=== PATIENT | male | born 1950 | race Caucasian/White ===

== ENCOUNTER 2017-12-26 14:07 | Inpatient (IN) | payer MEDICARE, OTHER ==
--- NOTE | 2017-12-26 16:52 | CT ---
NONCONTRAST CT HEAD 12/26/17 HISTORY: Altered mental status and slurred speech. COMPARISON: 03/23/17. FINDINGS: There are areas of decreased attenuation seen in the periventricular white matter which are nonspecif ic but likely reflective of mild chronic small vessel ischemic changes. There is no evidence of an ac curyung cortical infarction, hemorrhage, mass effect or midline shift. Diffuse cerebral volume loss is ag ain present. The ventricular system is normal in size, shape and position. There is opacification of a portion of the right maxillary antrum which may be related to combination of mucous retention cyst and mucosal thickening. Mastoid air cells are clear. No other interval roy ge. IMPRESSION: 1. No acute intracranial abnormalities demonstrated. 2. Mild chronic small vessel ischemic changes and cerebral volume loss. POS: OFF
--- NOTE | 2017-12-26 17:26 | HP ---
DATE OF ADMISSION: 12/26/2017 CHIEF COMPLAINT: Altered mental status. HISTORY OF PRESENT ILLNESS: This is a 67-year-old morbidly obese white male with a known history of congestive heart failure, history of atrial fibrillation and chronic alcoholic use. The patient was in his usual state of health until few days ago he started seeing people and having visual hallucinat ions. He reported this to his and the patient happened to see one of the bi specialist, who re ferred the patient to Neurology, Dr. Abreu, but the patient could not make it to the appointment an d last night he was having worsening mental status changes, so the patient was sent to [facility] and from there the patient is transferred here as the patient was having elevated troponins and an elevated BNP. The patient was seen along with his . He was alert and oriented x2. Denied havin g any chest pain, no nausea, no vomiting, no diarrhea, no constipation. Denies having any dizziness. Denies having any headache. The patient does reports to seeing many people in the room, but actual ly there were no people according to the . The patient has been drinking alcohol. He drinks vod ka pretty frequently 2 to 3 times a week and the last drink was last night. He had vodka when some o f his families were in the house. The patient has evidence of possible alcohol withdrawals as he is trying to cut down on alcohol for the past few days. Yesterday, after the hallucinations, he had anx iety attack and following which he had palpitations and noted that he had his heart rate was racing u p. PAST MEDICAL HISTORY: 1. Hypertension. 2. Obesity. 3. Dyslipidemia. 4. GERD. 5. Asthma. 6. Hypothyroidism. 7. Paroxysmal atrial fibrillation, chronic systolic heart failure, moderate coronary artery disease. 8. History of peptic ulcer bleed. PAST SURGICAL HISTORY: 1. Laparoscopic gastric banding. 2. Cholecystectomy. 3. Left knee replacement. 4. Right ankle surgery. 5. Tonsillectomy. 6. Adenoidectomy. 7. Umbilical hernia repair. PAST PSYCHIATRIC HISTORY: History of anxiety and depression. SOCIAL HISTORY: The patient has a history of alcoholism. As stated above, he does drink vodka 2 to 3 times a week. He denies smoking. No history of illicit drug use. FAMILY HISTORY: No family history of coronary artery disease or premature deaths in the family. ALLERGIES: No known drug allergies. HOME MEDICATIONS: 1. Tylenol. 2. Digoxin 0.125 mg daily. 3. Celexa 10 mg daily. 4. Folic acid 1 mg daily. 5. Lasix 40 mg daily. 6. Lisinopril 2.5 mg daily. 7. Metoprolol 25 mg tablet, takes 12.5 mg p.o. b.i.d. 8. Pantoprazole 40 mg p.o. b.i.d. 9. Simvastatin 40 mg p.o. daily. 10. Aspirin 81 mg daily. 11. Bupropion 100 mg p.o. b.i.d. 12. Fluticasone inhaler. 13. Levothyroxine 75 mcg daily. 14. Potassium chloride 20 mg daily. 15. Thiamine 100 mg p.o. daily. REVIEW OF SYSTEMS: All 12 systems are reviewed with the patient thoroughly and found to be negative at this time except the ones described in the HPI. The following complete review of systems was negative, unless otherwise mentioned in the HPI or below : Constitutional: Weight loss or gain, sense of well-being, ability to conduct usual activities, exerc ise tolerance. Skin/Breast: Rash, itching, changes in hair growth or loss, nail changes, breast lumps, tenderness, swelling, nipple discharge. Eyes: Vision, double vision, tearing, blind spots, pain. ENT/Mouth: Headaches (location, time of onset, duration, precipitating factors), vertigo, lightheade dness, injury. Vision, double vision, tearing, blind spots, pain, nose bleeding, colds, obstruction, discharge, dental difficulties, gingival bleeding, dentures, neck stiffness, pain, tenderness, masses in thyroid or other areas. Cardiovascular: Precordial pain, substernal distress, palpitations, syncope, dyspnea on exertion, or thopnea, nocturnal paroxysmal dyspnea, edema, cyanosis, hypertension, heart murmurs, varicosities, ph lebitis, claudication. Respiratory: Pain, shortness of breath, wheezing, stridor, cough, hemoptysis, fever or night sweats. Gastrointestinal: Poor appetite, dysphagia, indigestion, abdominal pain, heartburn, eructation, naus ea, vomiting, hematemesis, jaundice, constipation, or diarrhea, abnormal stools (sammy-colored, tarry, bloody, greasy, foul smelling), flatulence, hemorrhoids, recent changes in bowel habits. Genitourinary: Urgency, frequency, dysuria, nocturia, hematuria, polyuria, oliguria, unusual (or david nge in) color of urine, stones, hesitancy, change in size of stream, dribbling, acute retention or in continence, libido, potency. Musculoskeletal: Pain, swelling, redness or heat of muscles or joints, limitation, of motion, muscul ar weakness, atrophy, cramps. Neurologic/Psychiatric: Convulsions, paralyses, tremor, incoordination, paresthesias, difficulties w ith memory of speech, sensory or motor disturbances, or muscular coordination (ataxia, tremor), emoti onal problems, anxiety, depression, previous psychiatric care, unusual perceptions, hallucinations. Allergy/Immunologic: Skin rash, anemia, bleeding tendency, polydipsia, polyuria, intolerance to heat or cold. PHYSICAL EXAMINATION: VITAL SIGNS: Blood pressure is 130/88, respiratory rate is 19, and saturation is 98%. GENERAL: The patient is moderately built and moderately nourished, does not appear to be in acute di stress at this time, alert and oriented x3. HEENT: Atraumatic, normocephalic, PERRLA. Extraocular muscles are intact. Oral mucosa is pink and moist. CARDIOVASCULAR: S1, S2 normal. No murmurs, rubs or gallops. LUNGS: Bilateral air entry was equal. No wheezing, no crackles. ABDOMEN: Soft and nontender. No guarding or rebound tenderness. Bowel sounds normal. MUSCULOSKELETAL: No calf tenderness. No pedal edema. No joint tenderness, no joint swelling. SKIN: No cyanosis, no erythema, no rash, no pallor. NEUROLOGIC: Cranial nerve examination II-XII intact. No focal deficits were noted. LABORATORY DATA: Sodium is 123, potassium is 3.4, chloride is 79, bicarbonate is 26, BUN is 11, and creatinine is 0.79. WBC is 7.7, hemoglobin is 14.4, hematocrit is 43.0, and platelets 153. CK is 219, CK-MB 11.4, troponin 0.04. BNP is 1451. Urine toxicology was negative. ASSESSMENT: 1. Acute atrial fibrillation with rapid ventricular rate. 2. Non-ST elevation myocardial infarction. 3. Acute congestive heart failure with diastolic dysfunction. 4. Acute hyponatremia. 5. Acute metabolic encephalopathy. 6. Chronic alcoholism. PLAN: 1. The patient had a Cardizem bolus in the ER and his heart rate is back to normal now to 90 and the patient does not have any palpitations at this time. The patient mentions that his sales support associate, Dr Maria Luisa Gonzalez, has taken him off of all the antiarrhythmic medications, which is still showing in his MR a s the patient is on amiodarone. At this time, we will continue the patient on beta edie and will get a 2D echo in the morning. We will consult Cardiology, Dr. Gonzalez, as he is his own sales support associate. 2. The patient's initial troponin was elevated mildly to 0.04. We will closely monitor and most lik yuriy this could be a demand ischemia from the rapid ventricular rate. We will continue the patient on aspirin, beta edie and statin. 3. The patient has evidence of congestive heart failure as the has clearly noted that the patie nt has gained weight significantly and has a severe pedal edema and also third-spacing in the abdomen was noted. We will start the patient on Lasix 40 mg IV b.i.d. and also continue on lisinopril and s tart him on spironolactone 25 mg p.o. daily. 4. The patient has evidence of severe hyponatremia. This could be related to his alcohol consumptio n. At this time, we will continue with the Lasix as the patient has clear evidence of free fluid ove rload. We will continue to monitor the sodium levels. We would not give him any IV fluids at this t hao because of the volume overload state. 5. The patient has evidence of acute alcoholism. We will start the patient on thiamine and folic ac id and insurance counsel the patient to quit alcohol and explained the relation between alcohol and atrial fibr illation. 6. The patient is on digoxin, which could also have similar side effects of hallucinations, nausea a nd vomiting. At this time, we will check the digoxin levels. 7. The patient is morbidly obese. We will insurance counsel the patient to lose weight for better health. 8. The patient complains of severe hallucinations, most likely this could be related to the alcohol, but he also has some slurred speech, so we will get a CT of the head if it was not done in the [facility] and we will also consult Dr. Abreu as the patient was supposed to be seeing Dr. Abreu as an outpatient. 9. Deep venous thrombosis prophylaxis, Lovenox 40 mg subcutaneously daily. I spent 70 minutes with this patient. Of this, one hour is critical care time.
[2017-12-26 18:05] VITALS: BMI 44.4
[2017-12-26] MEDS ORDERED: Ondansetron PF 4 MG/2 ML Vial IVP PRN (18:09)
[2017-12-26] MEDS ORDERED: Bisacodyl 5 MG TAB PO PRN (18:09)
[2017-12-26] MEDS ORDERED: Acetaminophen 325 MG TAB PO PRN (18:09)
[2017-12-26] MEDS ORDERED: FLU VACC TS2017-18 (>65YR) 0.5 ML SYRINGE IM ONE (18:45)
[2017-12-26 18:49] LABS: Digoxin Less than 0.15 ng/mL (0.8-2.0)
[2017-12-26 18:55] LABS: Troponin I 0.042 ng/mL (< 0.028)
[2017-12-26] MEDS ORDERED: Diltiazem HCl 125 MG, Admixture Fee 1 EACH in Sodium Chloride 0.9% 100 ML IVPB SCH (19:00)
[2017-12-26] MEDS ORDERED: Sodium Chloride 0.9% 10 ML ONE ×3 (19:22→23:55)
[2017-12-26] MEDS: Bupropion 100 MG SR TAB PO SCH (19:49)
[2017-12-26] MEDS: Atorvastatin Calcium 20 MG TAB PO SCH (19:49)
[2017-12-26] MEDS ORDERED: buPROPion HCl 100 MG TAB PO SCH (21:00)
[2017-12-26] MEDS: Famotidine/PF 20 mg/2ml Vial SLOW IVP SCH (21:33)
[2017-12-26] MEDS: Metoprolol Tartrate 25 MG TAB PO SCH (21:43)
[2017-12-26] MEDS: Lorazepam 2 MG/ML VIAL SLOW IVP PRN (23:57)
[2017-12-27] MEDS: Fluticasone Propionate Nasal Spray 16 gm Bottle NASAL SCH ×3 (00:05→22:00)
[2017-12-27 05:23] LABS: #Basophils 0.1 thou/uL (0.0-0.2); #Lymphocytes 0.7 thou/uL (1.20-3.40); #Neutrophils 5.3 thou/uL (1.40-6.50); %Basophils 1.1 % (0.0-1.0); %Eosinophils 0.5 % (0.0-10.0); %Lymphocytes 9.3 % (21.0-51.0); %Neutrophils 75.1 % (42.0-75.0); Hemoglobin 13.8 g/dL (14.0-18.0); Mean Corpuscular HGB CONC 34.2 g/dL (32.0-36.0); Mean Corpuscular Hemoglobin 34.7 pg (27.0-31.0); Mean Platelet Volume 8.1 fL (7.4-10.4); Platelet Count 139 thou/uL (130-400); RBC Distribution Width 14.2 % (11.5-14.5); Red Blood Cell (RBC) Count 3.98 mill/uL (4.70-6.10)
[2017-12-27 05:34] LABS: Anion Gap 17 mmol/L (10-20); BUN (Urea Nitrogen) 12 mg/dL (8.4-25.7); Calc. Creatinine Clearance 168 mL/min (70-130); Calcium 9.2 mg/dL (7.8-10.44); Carbon Dioxide 27 mmol/L (23-31); Chloride 82 mmol/L (98-107); Estimated GFR-MDRD Greater than 90; Glucose 113 mg/dL (80-115); Potassium 3.4 mmol/L (3.5-5.1); Sodium 123 mmol/L (136-145)
[2017-12-27] MEDS ORDERED: Sodium Chloride 0.9% 10 ML ONE ×2 (07:58→21:56)
[2017-12-27] MEDS: Levothyroxine Sodium 100 MCG TAB PO SCH (08:02)
[2017-12-27] MEDS: Furosemide 40 MG/4 ML VIAL SLOW IVP SCH ×2 (08:02→14:11)
[2017-12-27] MEDS ORDERED: Amiodarone 200 MG TAB PO SCH (09:00)
[2017-12-27] MEDS: Famotidine/PF 20 mg/2ml Vial SLOW IVP SCH ×2 (10:04→22:32)
[2017-12-27] MEDS: Enoxaparin Sodium 40 MG/0.4 ML SYRINGE SC SCH (10:05)
[2017-12-27] MEDS: Metoprolol Tartrate 25 MG TAB PO SCH ×6 (10:05→22:00)
[2017-12-27] MEDS: Docusate 100 MG CAP PO SCH (10:06)
[2017-12-27] MEDS: Escitalopram Oxalate 20 mg Tablet PO SCH (10:06)
[2017-12-27] MEDS: Fish Oil 1,000 MG CAP PO SCH (10:06)
[2017-12-27] MEDS: Lisinopril 2.5 MG TAB PO SCH (10:06)
[2017-12-27] MEDS: Spironolactone 25 MG TAB PO SCH ×2 (10:07→10:31)
[2017-12-27] MEDS: Folic Acid 1 MG TAB PO SCH (10:07)
[2017-12-27] MEDS: Bupropion 100 MG SR TAB PO SCH ×2 (10:07→21:58)
[2017-12-27] MEDS: Potassium Chloride 20 MEQ TAB PO SCH (10:08)
--- NOTE | 2017-12-27 10:55 | CON ---
DATE OF CONSULTATION: 12/27/2017 CONSULTING PHYSICIAN: Hospitalist Service IMPRESSION: 1. Hallucinations. 2. Congestive heart failure. 3. Atrial fibrillation. PLAN: 1. Seroquel 50 mg at bedtime. 2. Office followup. Mr. Franks is a 67-year-old man who came in with complaints of a 2 week history of hallucinations. He has been relatively short of breath and has been placed on oxygen and was found to be in atrial fibr illation. His blood pressure has been under good control. He has been afebrile since admission. Pr s CT scan of the brain showed some minimal small vessel ischemic changes. He had nothing remarkable on his lab work. He reports that he was seeing people around the house that were not there. He was told by his that these were not real and he had some difficulty accepting it. He is otherwise w ithout any particular complaints such as headache, nausea, dizziness, lateralized weakness or numbnes s. PAST MEDICAL HISTORY: As listed above. ALLERGIES: CODEINE. SOCIAL HISTORY: No alcohol use. FAMILY HISTORY: Noncontributory. REVIEW OF SYSTEMS: Otherwise, negative. PHYSICAL EXAMINATION: GENERAL: He is an overweight, middle age man sitting at the bedside, appearing be somewhat short of breath. VITAL SIGNS: Pulse 80, respirations 20. HEENT: Pupils equal and reactive. Conjunctivae clear. Oropharynx clear. NECK: No lymphadenopathy. EXTREMITIES: Showed a moderate amount of edema in both lower extremities. NEUROLOGIC: He is alert and cooperative. He was oriented to person and time. He still was not sure exactly which hospital he was in. His speech is fluent and clear. His exam was otherwise nonfocal. SUMMARY: A 67-year-old man with some degree of memory difficulty who has been having some visual ana lucinations. Will go ahead and start him on an anti-psychotic and follow up with him to [facility] [employer] workup for dementia as an outpatient.
[2017-12-27] MEDS ORDERED: Metoprolol Tartrate 25 MG TAB PO SCH (12:00)
--- NOTE | 2017-12-27 12:23 | CON ---
DATE OF CONSULTATION: 12/27/2017 REASON FOR CONSULTATION: Atrial fibrillation with rapid ventricular response and heart failure. PRIMARY STRUCTURED CABLING TECHNICIAN: Lew Gonzalez M.D. HISTORY OF PRESENT ILLNESS: Mr. Franks is a very pleasant 67-year-old white gentleman who comes to the hospital for hallucinations. He had been noticing increase in his hallucinations at home, so he had an appointment scheduled with Dr. Abreu, his neurologist. He could not make the appointment and does the hallucinations got worse, he started getting short of breath, so his brought him to the ER. Here, he was found to have an elevated BNP and had been in atrial fibrillation with RVR, so he was admitted for further evaluation and care. He has a history of paroxysmal atrial fibrillation; however, when last time he was seen, he was here for a GI bleed, we stopped all his anticoagulation. He also had this atrial fibrillation that would not be controlled. He would not convert and he was basically sent home on rate control. We were unable to do a cardioversion as we would not be able to anticoagulate him afterwards. He also had echocardiogram that showed his EF initially was about 20%-25%. This was during rapid atrial fibrillation. Once we managed just slowing down some more, he was back up to about 40%, which he had been in the past. He has nonischemic cardiomyopathy, which is moderate disease in his coronary anatomy from a heart catheterization in 2014. On my evaluation, Mr. Franks is doing a little bit better. He is well aware of his hallucinations, but other than that, his breathing is just a little bit labored , but not currently, he states it is better than yesterday. He drinks alcohol. He used to drink much heavier, but he only dose about 2-3 times a week. He drinks vodka and he had a couple beers on [employer] weekend. Mr. Franks admits to having some very dark looking stool. He is not sure if he had melena or not , but he thinks he may have. PAST MEDICAL HISTORY: 1. Hypertension. 2. Obesity. 3. Hyperlipidemia. 4. Gastroesophageal reflux disease. 5. Asthma. 6. Hypothyroidism. 7. Paroxysmal atrial fibrillation. 8. Chronic systolic dysfunction. 9. Mild to moderate coronary artery disease. 10. Peptic ulcer disease, status post bleeding. PAST SURGICAL HISTORY: 1. Laparoscopic gastric banding. 2. Cholecystectomy. 3. Left knee replacement. 4. Right ankle surgery. 5. Tonsillectomy. 6. Heart catheterization. 7. Adenoidectomy. 8. Umbilical hernia repair. SOCIAL HISTORY: No tobacco or drugs. He is a former heavy alcohol user, most recently he is only drinking about 2-3 vodka shots a week according to his report. FAMILY HISTORY: Noncontributory. OUTPATIENT MEDICATIONS: Should include, 1. Tylenol. 2. Digoxin 0.125 mg daily. 3. Celexa. 4. Folic acid. 5. Lasix 40 mg daily. 6. Lisinopril 2.5 mg daily. 7. Metoprolol 12.5 mg b.i.d. 8. Pantoprazole 40 mg b.i.d. 9. Simvastatin 40 mg daily. 10. Aspirin 81 daily. 11. Bupropion 100 mg b.i.d. 12. Fluticasone. 13. Levothyroxine 75 mcg daily. 14. Potassium chloride 20 mg daily. 15. Thiamine. REVIEW OF SYSTEMS: Twelve point review of systems was done and is all negative unless stated in the history of present illness. PHYSICAL EXAMINATION: VITAL SIGNS: Temperature 97.5, pulse 101-78, respiratory rate 18, satting 96% on 2 liters, blood pressure 110/67. GENERAL: Awake, alert, oriented to person and place, little bit of difficulty with time, but answers, in no distress. HEENT: Normocephalic. NECK: Supple. LUNGS: Have mild crackles at the bases. CARDIOVASCULAR: S1, S2 irregularly irregular. Heart rate in the 90s. There is a grade 2/6 systolic murmur in the right upper sternal border. ABDOMEN: Soft. EXTREMITIES: 2+ edema. SKIN: Warm and dry. LABORATORY WORK: Reviewed. Digoxin level was undetectable. Hematology with a normal white count, hemoglobin 13, hematocrit 40, platelet count 139. Chemistries: Sodium 123, potassium is 3.4, chloride of 82, carbon dioxide 27, anion gap of 17, BUN of 12, creatinine 0.84, GFR of greater than 90, calcium is normal. Troponin I was 0.04 and 0.04. BNP was 985. IMAGING: CT of the brain was reviewed. EKG was reviewed. ASSESSMENT: 1. Acute on chronic systolic heart failure. 2. Atrial fibrillation, paroxysmal now in rapid ventricular response. Currently, better rate controlled. 3. History of alcohol use. 4. Possible cirrhosis. 5. History of upper gastrointestinal bleed. 6. Medication noncompliance. 7. Hallucinations followed by Neurology. PLAN: 1. We will stop diltiazem drip and we will start him on his home medications, most likely his rapid ventricular response was related to just being volume up and the stress of the hallucinations. He is much more calm now and his heart rate is in the 90s, off the drip for the last half hour. 2. Not a good candidate for any anticoagulation given his noncompliance and his history of GI bleed while on blood thinners as well as possibly having cirrhosis. 3. For his hallucinations, I am going to check ammonia level. 4. Continue to trend hemoglobin and make sure he is not having any bleeding from his report of having very dark looking stool. 5. Echocardiogram pending. As if his EF is less than 35%, he may be a candidate for an AICD now. Thank you for letting us participate in the care of the patient. We will follow. [facility]
--- NOTE | 2017-12-27 13:44 | PDOC.PN ---
- Subjective Encounter Start Date: 12/27/17 Encounter Start Time: 11:00 -: old records requested/rev Pt seen and examined, chart reviewed in its entirety, this is my first visit with this patient. Pt sleeping, but arousable, no tremulous. Denies f/C, no N/V/d/C. Sees somnolent, oriented to person only, denies hallucinations 10 point ROS performed and neg for all systems except as above, again, unsure of reliability BP dropped some this morning on cardizem, drip, stopped by dr elder, thinks pt is in chronic afib and look s to rate control only - Objective Resuscitation Status: Resuscitation Status FULL:Full Resuscitation MAR Reviewed: Yes Vital Signs & Weight: Vital Signs (12 hours) Temp Pulse Pulse Pulse Resp BP BP 12/27/17 11:17 97.5 F L 78 16 12/27/17 10:06 101 H 12/27/17 09:02 97.5 F L 78 16 12/27/17 08:50 112 H 115 H 166/82 H 129/76 12/27/17 08:10 89 12/27/17 04:00 96.5 F L 98 20 BP Pulse Ox 12/27/17 11:17 110/67 96 12/27/17 10:06 12/27/17 09:02 105/73 96 12/27/17 08:50 12/27/17 08:10 136/86 12/27/17 04:00 138/57 L 95 Weight Weight 305 lb 1 oz I&O: 12/26/17 12/27/17 12/28/17 06:59 06:59 06:59 Intake Total 120 186 Output Total 525 Balance 120 -339 Result Diagrams: 12/27/17 04:38 12/27/17 04:38 Radiology Reviewed by me: Yes EKG Reviewed by me: Yes Phys Exam - Physical Examination Constitutional: NAD HEENT: PERRLA, moist MMs, sclera anicteric, oral pharynx no lesions Neck: no nodes, no JVD, supple, full ROM Respiratory: no wheezing, no rhonchi bibasilar crackles Cardiovascular: no significant murmur, irregular tachycardic Gastrointestinal: soft, non-tender, no distention, positive bowel sounds Musculoskeletal: pulses present, edema present Neurological: non-focal, normal sensation, moves all 4 limbs Lymphatic: no nodes Skin: no rash, normal turgor, cap refill <2 seconds Dx/Plan (1) Chronic a-fib Code(s): I48.2 - CHRONIC ATRIAL FIBRILLATION Status: Acute Comment: rate control. BBlocker, cardiology following (2) Acute on chronic systolic heart failure Code(s): I50.23 - ACUTE ON CHRONIC SYSTOLIC (CONGESTIVE) HEART FAILURE Status : Acute (3) Encephalopathy acute Code(s): G93.40 - ENCEPHALOPATHY, UNSPECIFIED Status: Acute Comment: history previously. ? metabolic or DTs. watch, ASE, ativan PRN (4) Physical deconditioning Code(s): R53.81 - OTHER MALAISE Status: Acute (5) Cardiomyopathy Code(s): I42.9 - CARDIOMYOPATHY, UNSPECIFIED Status: Chronic Qualifiers: Cardiomyopathy type: alcoholic Qualified Code(s): I42.6 - Alcoholic cardiomyopathy Comment: ef of around 25%, clinical decompensation, resume chronic meds (6) ETOH abuse Code(s): F10.10 - ALCOHOL ABUSE, UNCOMPLICATED Status: Chronic Comment: will contact family to discuss current usage (7) HLD (hyperlipidemia) Code(s): E78.5 - HYPERLIPIDEMIA, UNSPECIFIED Status: Chronic Qualifiers: Hyperlipidemia type: unspecified Qualified Code(s): E78.5 - Hyperlipidemia , unspecified (8) HTN (hypertension) Code(s): I10 - ESSENTIAL (PRIMARY) HYPERTENSION Status: Chronic Qualifiers: Hypertension type: essential hypertension Qualified Code(s): I10 - Essential (primary) hypertension Comment: Stable, continue home BP regimen (9) Hypothyroid Code(s): E03.9 - HYPOTHYROIDISM, UNSPECIFIED Status: Chronic Qualifiers: Hypothyroidism type: unspecified Qualified Code(s): E03.9 - Hypothyroidism , unspecified Comment: Continue Levothyroxine 100mcg daily - Plan * .
[2017-12-27] MEDS: Lorazepam 2 MG/ML VIAL SLOW IVP PRN (14:10)
[2017-12-27] MEDS: Atorvastatin Calcium 20 MG TAB PO SCH (22:00)
[2017-12-28] MEDS ORDERED: Sodium Chloride 0.9% 10 ML ONE (06:14)
[2017-12-28] MEDS: Furosemide 40 MG/4 ML VIAL SLOW IVP SCH ×2 (06:25→14:55)
[2017-12-28] MEDS: Levothyroxine Sodium 100 MCG TAB PO SCH (06:26)
[2017-12-28] MEDS: Potassium Chloride 20 MEQ TAB PO SCH ×4 (06:32→18:36)
[2017-12-28 07:24] LABS: #Lymphocytes 0.7 thou/uL (1.20-3.40); #Monocytes 0.8 thou/uL (0.11-0.59); #Neutrophils 3.9 thou/uL (1.40-6.50); %Basophils 0.3 % (0.0-1.0); %Eosinophils 0.6 % (0.0-10.0); %Lymphocytes 13.3 % (21.0-51.0); %Monocytes 14.1 % (0.0-10.0); %Neutrophils 71.7 % (42.0-75.0); Mean Corpuscular HGB CONC 33.8 g/dL (32.0-36.0); Mean Corpuscular Hemoglobin 34.3 pg (27.0-31.0); Mean Platelet Volume 7.7 fL (7.4-10.4); Platelet Count 125 thou/uL (130-400); White Blood Cell (WBC) Count 5.4 thou/uL (4.8-10.8)
[2017-12-28 07:45] LABS: Anion Gap 12 mmol/L (10-20); BUN (Urea Nitrogen) 16 mg/dL (8.4-25.7); Calc. Creatinine Clearance 140 mL/min (70-130); Calcium 9.2 mg/dL (7.8-10.44); Carbon Dioxide 34 mmol/L (23-31); Chloride 81 mmol/L (98-107); Estimated GFR-MDRD 75; Glucose 114 mg/dL (80-115); Magnesium 1.6 mg/dL (1.6-2.6); Sodium 124 mmol/L (136-145)
[2017-12-28] MEDS: Bupropion 100 MG SR TAB PO SCH ×2 (10:03→20:11)
[2017-12-28] MEDS: Fish Oil 1,000 MG CAP PO SCH (10:03)
[2017-12-28] MEDS: Famotidine/PF 20 mg/2ml Vial SLOW IVP SCH (10:03)
[2017-12-28] MEDS: Escitalopram Oxalate 20 mg Tablet PO SCH (10:03)
[2017-12-28] MEDS: Folic Acid 1 MG TAB PO SCH (10:04)
[2017-12-28] MEDS: Spironolactone 25 MG TAB PO SCH (10:04)
[2017-12-28] MEDS: Fluticasone Propionate Nasal Spray 16 gm Bottle NASAL SCH ×2 (10:04→20:11)
[2017-12-28] MEDS: Docusate 100 MG CAP PO SCH (10:04)
[2017-12-28] MEDS: Lisinopril 2.5 MG TAB PO SCH (10:05)
[2017-12-28] MEDS: Metoprolol Tartrate 25 MG TAB PO SCH ×2 (10:07→20:10)
[2017-12-28] MEDS: Enoxaparin Sodium 40 MG/0.4 ML SYRINGE SC SCH (10:08)
[2017-12-28] MEDS ORDERED: Diazepam 5 MG TAB PO PRN (10:46)
[2017-12-28] MEDS ORDERED: Diazepam 5 MG TAB PO SCH (11:00)
[2017-12-28] MEDS ORDERED: Thiamine HCl 200 MG/2 ML VIAL IM SCH (11:00)
--- NOTE | 2017-12-28 14:01 | PDOC.PN ---
- Subjective Encounter Start Date: 12/28/17 Encounter Start Time: 10:30 Pt much more awake and alert today Ox3. no F/C, no n/V/D/c, no CP or sOB. BP okay, HR 90s to 110s. no acute events overnight 10 point ROS performed and neg for all systems except as per HPI - Objective Resuscitation Status: Resuscitation Status FULL:Full Resuscitation MAR Reviewed: Yes Vital Signs & Weight: Vital Signs (12 hours) Temp Pulse Resp BP BP BP Pulse Ox 12/28/17 11:50 97.5 F L 116 H 18 108/77 95 12/28/17 08:00 97.9 F 99 20 95 12/28/17 07:35 97.9 F 90 20 108/74 98 12/28/17 06:34 101 H 18 107/70 12/28/17 03:59 97.4 F L 89 16 98/67 93 L Weight Weight 301 lb I&O: 12/27/17 12/28/17 12/29/17 06:59 06:59 06:59 Intake Total 120 186 80 Output Total 525 160 Balance 120 -339 -80 Result Diagrams: 12/28/17 06:54 12/28/17 06:54 Radiology Reviewed by me: Yes EKG Reviewed by me: Yes Phys Exam - Physical Examination Constitutional: NAD HEENT: PERRLA, moist MMs, sclera anicteric, oral pharynx no lesions Neck: no nodes, no JVD, supple, full ROM bibasilar rales. no rhonci, no wheezes Cardiovascular: RRR, no significant murmur, irregular Gastrointestinal: soft, non-tender, no distention, positive bowel sounds Musculoskeletal: pulses present, edema present Neurological: non-focal, normal sensation, moves all 4 limbs Lymphatic: no nodes Psychiatric: normal affect, A&O x 3 Skin: no rash, normal turgor, cap refill <2 seconds Dx/Plan (1) Chronic a-fib Code(s): I48.2 - CHRONIC ATRIAL FIBRILLATION Status: Acute Comment: rate control. BBlocker, cardiology following (2) Acute on chronic systolic heart failure Code(s): I50.23 - ACUTE ON CHRONIC SYSTOLIC (CONGESTIVE) HEART FAILURE Status : Acute (3) Encephalopathy acute Code(s): G93.40 - ENCEPHALOPATHY, UNSPECIFIED Status: Acute Comment: history previously. ? metabolic or DTs. watch, ASE, ativan PRN. much more alert and oriented today (4) Physical deconditioning Code(s): R53.81 - OTHER MALAISE Status: Acute (5) Cardiomyopathy Code(s): I42.9 - CARDIOMYOPATHY, UNSPECIFIED Status: Chronic Qualifiers: Cardiomyopathy type: alcoholic Qualified Code(s): I42.6 - Alcoholic cardiomyopathy Comment: ef of around 25%, clinical decompensation, resume chronic meds (6) ETOH abuse Code(s): F10.10 - ALCOHOL ABUSE, UNCOMPLICATED Status: Chronic Comment: will contact family to discuss current usage (7) HLD (hyperlipidemia) Code(s): E78.5 - HYPERLIPIDEMIA, UNSPECIFIED Status: Chronic Qualifiers: Hyperlipidemia type: unspecified Qualified Code(s): E78.5 - Hyperlipidemia , unspecified (8) HTN (hypertension) Code(s): I10 - ESSENTIAL (PRIMARY) HYPERTENSION Status: Chronic Qualifiers: Hypertension type: essential hypertension Qualified Code(s): I10 - Essential (primary) hypertension Comment: Stable, continue home BP regimen (9) Hypothyroid Code(s): E03.9 - HYPOTHYROIDISM, UNSPECIFIED Status: Chronic Qualifiers: Hypothyroidism type: unspecified Qualified Code(s): E03.9 - Hypothyroidism , unspecified Comment: Continue Levothyroxine 100mcg daily - Plan * .
--- NOTE | 2017-12-28 16:11 | PDOC.CTH ---
Cardiology Progress Note - Subjective He is doing better. He has diuresed and his breathing has improved. - Objective Vital Signs Temp Pulse Resp BP BP Pulse Ox 12/28/17 11:50 97.5 F L 116 H 18 108/77 95 12/28/17 08:00 97.9 F 99 20 95 12/28/17 07:35 97.9 F 90 20 108/74 98 12/28/17 06:34 101 H 18 107/70 Weight 301 lb 12/27/17 12/28/17 12/29/17 06:59 06:59 06:59 Intake Total 120 186 80 Output Total 525 160 Balance 120 -339 -80 - Physical Examination General/Neuro: alert & oriented x3, NAD Neck: no JVD present Lungs: unlabored respirations Heart: RRR Abdomen: NT/ND Extremities: + edema B (1+) - Telemetry Telemetry Rhythm: NSR - Labs Result Diagrams: 12/28/17 06:54 12/28/17 06:54 Troponin/CKMB Troponin I 0.042 ng/mL (< 0.028) H 12/26/17 18:20 - Assessment/Plan 1. Afib RVR, paroxysmal now in sinus. 2. Non ischemic CM EF at 20-25%, dilated CM. 3. Mild to moderate CAD. 4. Acute on chronic systolic heart failure 5. Possible cirrhosis. 6. Hx of UGI bleed. 7. Medication non compliance. 8. Hallucinations. 9. Hyponatremia. PLAN; - Continue IV diuresis. - Will need lifevest before discharge. - Cannot up titrate BB or ACEI due to bordelrine low BP. - Replace K.
[2017-12-28] MEDS: Famotidine 20 MG TAB PO SCH (20:11)
[2017-12-28] MEDS: Atorvastatin Calcium 20 MG TAB PO SCH (20:11)
[2017-12-29] MEDS ORDERED: Diazepam 5 MG TAB PO PRN (04:00)
[2017-12-29] MEDS ORDERED: Sodium Chloride 0.9% 10 ML ONE (05:39)
[2017-12-29 05:54] LABS: #Lymphocytes 0.9 thou/uL (1.20-3.40); #Monocytes 0.9 thou/uL (0.11-0.59); #Neutrophils 4.6 thou/uL (1.40-6.50); %Basophils 0.1 % (0.0-1.0); %Eosinophils 0.7 % (0.0-10.0); %Lymphocytes 13.5 % (21.0-51.0); %Monocytes 13.7 % (0.0-10.0); %Neutrophils 71.9 % (42.0-75.0); Hemoglobin 13.8 g/dL (14.0-18.0); Mean Corpuscular HGB CONC 33.9 g/dL (32.0-36.0); Mean Corpuscular Hemoglobin 34.2 pg (27.0-31.0); Platelet Count 132 thou/uL (130-400); RBC Distribution Width 13.9 % (11.5-14.5); Red Blood Cell (RBC) Count 4.03 mill/uL (4.70-6.10); White Blood Cell (WBC) Count 6.4 thou/uL (4.8-10.8)
[2017-12-29 06:06] LABS: Anion Gap 12 mmol/L (10-20); BUN (Urea Nitrogen) 18 mg/dL (8.4-25.7); Calc. Creatinine Clearance 134 mL/min (70-130); Calcium 9.6 mg/dL (7.8-10.44); Carbon Dioxide 33 mmol/L (23-31); Chloride 83 mmol/L (98-107); Estimated GFR-MDRD 72; Glucose 140 mg/dL (80-115); Magnesium 1.8 mg/dL (1.6-2.6); Potassium 3.9 mmol/L (3.5-5.1); Sodium 124 mmol/L (136-145)
[2017-12-29] MEDS: Levothyroxine Sodium 100 MCG TAB PO SCH (06:13)
[2017-12-29] MEDS: Furosemide 40 MG/4 ML VIAL SLOW IVP SCH ×2 (06:14→14:28)
[2017-12-29] MEDS: Enoxaparin Sodium 40 MG/0.4 ML SYRINGE SC SCH (08:44)
[2017-12-29] MEDS: Potassium Chloride 20 MEQ TAB PO SCH (08:45)
[2017-12-29] MEDS: Escitalopram Oxalate 20 mg Tablet PO SCH (08:45)
[2017-12-29] MEDS: Folic Acid 1 MG TAB PO SCH (08:46)
[2017-12-29] MEDS: Docusate 100 MG CAP PO SCH (08:46)
[2017-12-29] MEDS: Lisinopril 2.5 MG TAB PO SCH (08:46)
[2017-12-29] MEDS: Multivitamin W/ Minerals 1 TAB PO SCH (08:46)
[2017-12-29] MEDS: Famotidine 20 MG TAB PO SCH ×2 (08:47→21:49)
[2017-12-29] MEDS: Magnesium Oxide 400 MG TAB PO SCH (08:47)
[2017-12-29] MEDS: Spironolactone 25 MG TAB PO SCH (08:47)
[2017-12-29] MEDS: Fish Oil 1,000 MG CAP PO SCH (08:47)
[2017-12-29] MEDS: Fluticasone Propionate Nasal Spray 16 gm Bottle NASAL SCH ×2 (08:48→22:03)
[2017-12-29] MEDS: Metoprolol Tartrate 25 MG TAB PO SCH ×2 (08:48→21:48)
[2017-12-29] MEDS: Bupropion 100 MG SR TAB PO SCH ×2 (08:48→21:48)
--- NOTE | 2017-12-29 11:20 | PDOC.PN ---
- Subjective Encounter Start Date: 12/29/17 Encounter Start Time: 11:15 Subjective: f/u for PAF with persistent A-fib controlled rate, ETOH abuse and AMS. -: ICM with EF 25% needing LifeVest prior to d/c. - Objective Resuscitation Status: Resuscitation Status FULL:Full Resuscitation MAR Reviewed: Yes Vital Signs & Weight: Vital Signs (12 hours) Temp Pulse Resp BP BP Pulse Ox 12/29/17 08:46 95 130/90 12/29/17 08:00 97.4 F L 95 19 94 L 12/29/17 06:08 97.4 F L 115 H 20 118/82 98 12/29/17 02:42 98 20 97 12/29/17 02:21 94 L Weight Weight 306 lb 1 oz I&O: 12/28/17 12/29/17 12/30/17 06:59 06:59 06:59 Intake Total 186 1200 Output Total 525 1235 Balance -339 -35 Result Diagrams: 12/29/17 05:27 12/29/17 05:27 Additional Labs: Laboratory Tests 12/27/17 12/27/17 12/27/17 04:38 04:38 11:38 Sodium 123 L Potassium 3.4 L Ammonia 51 B-Natriuretic Peptide 985.3 H 12/28/17 06:54 Sodium 124 L Potassium 3.0 L Ammonia B-Natriuretic Peptide Radiology Reviewed by me: Yes (CT brain - chronic isch changes, no acute findings) EKG Reviewed by me: Yes (Tele - A-fib in 90's) Phys Exam - Physical Examination Constitutional: NAD HEENT: PERRLA, oral pharynx no lesions Neck: no JVD, supple Respiratory: no wheezing, clear to auscultation bilateral Cardiovascular: irregular Gastrointestinal: soft, non-tender, no distention, positive bowel sounds Musculoskeletal: pulses present, edema present Neurological: normal sensation, moves all 4 limbs Psychiatric: A&O x 3 Skin: normal turgor, cap refill <2 seconds Dx/Plan (1) Nonischemic cardiomyopathy Code(s): I42.8 - OTHER CARDIOMYOPATHIES Status: Chronic Comment: EF 25%, plan for LifeVest prior to d/c, Lasix 40mg IV BID (2) Chronic a-fib Code(s): I48.2 - CHRONIC ATRIAL FIBRILLATION Status: Acute Comment: Variable rate, no anticoagulation due to hx of GI bleeding and ongoing ETOH abuse, ASA, Metoprolol (3) Acute on chronic systolic heart failure Code(s): I50.23 - ACUTE ON CHRONIC SYSTOLIC (CONGESTIVE) HEART FAILURE Status : Acute Comment: Continue Lasix 40mg IV BID (4) Encephalopathy acute Code(s): G93.40 - ENCEPHALOPATHY, UNSPECIFIED Status: Acute Comment: history previously. Secondary to ETOH abuse, supportive, Valium prn (5) Hypokalemia Code(s): E87.6 - HYPOKALEMIA Status: Acute (6) ETOH abuse Code(s): F10.10 - ALCOHOL ABUSE, UNCOMPLICATED Status: Chronic Comment: See above, cessation resources prior to d/c (7) HTN (hypertension) Code(s): I10 - ESSENTIAL (PRIMARY) HYPERTENSION Status: Chronic Qualifiers: Hypertension type: essential hypertension Qualified Code(s): I10 - Essential (primary) hypertension Comment: Stable, continue home BP regimen (8) Hypothyroid Code(s): E03.9 - HYPOTHYROIDISM, UNSPECIFIED Status: Chronic Qualifiers: Hypothyroidism type: unspecified Qualified Code(s): E03.9 - Hypothyroidism , unspecified Comment: Continue Levothyroxine 100mcg daily (9) Chronic hyponatremia Code(s): E87.1 - HYPO-OSMOLALITY AND HYPONATREMIA Status: Chronic Comment: Secondary to chronic ETOH abuse, supportive - Plan PT/OT, certified social workers in health care, respiratory therapy, out of bed/ambulate, DVT proph w/ SCDs Stable overall -: Continue Lasix 40mg IV q12h -: LifeVest prior to d/c -: Continue ASA 81mg daily -: Continue Valium prn * .
[2017-12-29] MEDS ORDERED: Nystatin Powder 15 GM BOT TOP PRN (11:44)
--- NOTE | 2017-12-29 16:09 | PDOC.CTH ---
Cardiology Progress Note - Subjective No new isues. Breathing is at baseline. He continues to have hallucinations. - Objective Vital Signs Temp Pulse Resp BP BP Pulse Ox 12/29/17 12:00 97.2 F L 94 16 99/77 97 12/29/17 08:46 95 130/90 12/29/17 08:00 97.4 F L 95 19 94 L 12/29/17 06:08 97.4 F L 115 H 20 118/82 98 Weight 306 lb 1 oz 12/28/17 12/29/17 12/30/17 06:59 06:59 06:59 Intake Total 186 1200 Output Total 525 1235 Balance -339 -35 - Physical Examination General/Neuro: alert & oriented x3, NAD Neck: no JVD present Lungs: unlabored respirations Heart: RRR Abdomen: NT/ND Extremities: + edema B (2+) - Telemetry Telemetry Rhythm: afib HR 60's. - Labs Result Diagrams: 12/29/17 05:27 12/29/17 05:27 Troponin/CKMB Troponin I 0.042 ng/mL (< 0.028) H 12/26/17 18:20 - Assessment/Plan 1. Afib RVR, paroxysmal now rate controlled. . 2. Non ischemic CM EF at 20-25%, dilated CM. 3. Mild to moderate CAD. 4. Acute on chronic systolic heart failure 5. Possible cirrhosis. 6. Hx of UGI bleed. 7. Medication non compliance. 8. Hallucinations. 9. Hyponatremia. PLAN; - Continue IV diuresis for onre more day and switch to PO lasix tomorrow. - Will need lifevest before discharge. - Cannot up titrate BB or ACEI due to bordelrine low BP.
[2017-12-29] MEDS: Atorvastatin Calcium 20 MG TAB PO SCH (21:48)
[2017-12-30] MEDS: Levothyroxine Sodium 100 MCG TAB PO SCH (06:09)
[2017-12-30] MEDS: Furosemide 40 MG/4 ML VIAL SLOW IVP SCH ×3 (06:09→16:43)
[2017-12-30] MEDS: Potassium Chloride 20 MEQ TAB PO SCH (08:44)
[2017-12-30] MEDS: Bupropion 100 MG SR TAB PO SCH ×2 (08:45→21:35)
[2017-12-30] MEDS: Docusate 100 MG CAP PO SCH (08:45)
[2017-12-30] MEDS: Enoxaparin Sodium 40 MG/0.4 ML SYRINGE SC SCH (08:45)
[2017-12-30] MEDS: Metoprolol Tartrate 25 MG TAB PO SCH ×2 (08:46→21:35)
[2017-12-30] MEDS: Famotidine 20 MG TAB PO SCH ×2 (08:46→21:35)
[2017-12-30] MEDS: Fish Oil 1,000 MG CAP PO SCH (08:46)
[2017-12-30] MEDS: Lisinopril 2.5 MG TAB PO SCH (08:46)
[2017-12-30] MEDS: Magnesium Oxide 400 MG TAB PO SCH (08:46)
[2017-12-30] MEDS: Escitalopram Oxalate 20 mg Tablet PO SCH (08:46)
[2017-12-30] MEDS: Folic Acid 1 MG TAB PO SCH (08:46)
[2017-12-30] MEDS: Multivitamin W/ Minerals 1 TAB PO SCH (08:47)
[2017-12-30] MEDS: Spironolactone 25 MG TAB PO SCH (08:47)
[2017-12-30] MEDS: Fluticasone Propionate Nasal Spray 16 gm Bottle NASAL SCH ×2 (08:48→21:35)
--- NOTE | 2017-12-30 16:12 | PDOC.PN ---
- Subjective Encounter Start Date: 12/30/17 Encounter Start Time: 16:00 Subjective: f/u for AMS, ICM with EF 25%, hyponatremia. Currently states intermittent -: hallucinations. Also stating he does not want LifeVest. - Objective Resuscitation Status: Resuscitation Status FULL:Full Resuscitation MAR Reviewed: Yes Vital Signs & Weight: Vital Signs (12 hours) Temp Pulse Pulse Pulse Resp BP BP 12/30/17 16:00 97.5 F L 106 H 19 12/30/17 15:00 114 H 82 133/84 114/90 12/30/17 12:00 97.8 F 99 17 12/30/17 08:46 96 12/30/17 08:00 97.5 F L 96 20 BP BP Pulse Ox Pulse Ox Pulse Ox 12/30/17 16:00 117/76 96 12/30/17 15:00 96 92 L 12/30/17 12:00 118/80 96 12/30/17 08:46 12/30/17 08:00 120/86 99 Weight Weight 308 lb I&O: 12/29/17 12/30/17 12/31/17 06:59 06:59 06:59 Intake Total 1200 860 Output Total 1235 Balance -35 860 Result Diagrams: 12/29/17 05:27 12/29/17 05:27 EKG Reviewed by me: Yes (Tele - A-fib in 90's) Phys Exam - Physical Examination Constitutional: NAD alert, responds to questions HEENT: PERRLA, oral pharynx no lesions Neck: no JVD, supple diminished in bases Cardiovascular: irregular Gastrointestinal: soft, non-tender, no distention, positive bowel sounds Musculoskeletal: pulses present, edema present Neurological: normal sensation, moves all 4 limbs A x O x 2 Skin: normal turgor, cap refill <2 seconds Dx/Plan (1) Nonischemic cardiomyopathy Code(s): I42.8 - OTHER CARDIOMYOPATHIES Status: Chronic Comment: EF 25%, declining LifeVest, change Lasix 40mg IV TID (2) Chronic a-fib Code(s): I48.2 - CHRONIC ATRIAL FIBRILLATION Status: Acute Comment: Variable rate, no anticoagulation due to hx of GI bleeding and ongoing ETOH abuse, ASA, Metoprolol (3) Acute on chronic systolic heart failure Code(s): I50.23 - ACUTE ON CHRONIC SYSTOLIC (CONGESTIVE) HEART FAILURE Status : Acute Comment: Continue Lasix 40mg IV TID (4) Encephalopathy acute Code(s): G93.40 - ENCEPHALOPATHY, UNSPECIFIED Status: Acute Comment: history previously. Secondary to ETOH abuse, supportive, Valium prn (5) Hypokalemia Code(s): E87.6 - HYPOKALEMIA Status: Acute Comment: Improved (6) ETOH abuse Code(s): F10.10 - ALCOHOL ABUSE, UNCOMPLICATED Status: Chronic Comment: See above, cessation resources prior to d/c (7) HTN (hypertension) Code(s): I10 - ESSENTIAL (PRIMARY) HYPERTENSION Status: Chronic Qualifiers: Hypertension type: essential hypertension Qualified Code(s): I10 - Essential (primary) hypertension Comment: Stable, continue home BP regimen (8) Hypothyroid Code(s): E03.9 - HYPOTHYROIDISM, UNSPECIFIED Status: Chronic Qualifiers: Hypothyroidism type: unspecified Qualified Code(s): E03.9 - Hypothyroidism , unspecified Comment: Continue Levothyroxine 100mcg daily (9) Chronic hyponatremia Code(s): E87.1 - HYPO-OSMOLALITY AND HYPONATREMIA Status: Chronic Comment: Secondary to chronic ETOH abuse, ? SIADH due to SSRI and volume overload - Plan PT/OT, social service technician, respiratory therapy, out of bed/ambulate Stable overall -: Change Lasix 40mg IV q8h -: Hold Lexapro due to potential SIADH -: Discussed risks of not having LifeVest and pt willing to accept -: AM lab: BMP * .
--- NOTE | 2017-12-30 20:47 | PDOC.CTH ---
Cardiology Progress Note - Subjective No new issues or concerns. - Objective Vital Signs Temp Pulse Pulse Pulse Resp BP BP 12/30/17 16:00 97.5 F L 106 H 19 12/30/17 15:00 114 H 82 133/84 114/90 12/30/17 12:00 97.8 F 99 17 12/30/17 08:46 96 BP BP Pulse Ox Pulse Ox Pulse Ox 12/30/17 16:00 117/76 96 12/30/17 15:00 96 92 L 12/30/17 12:00 118/80 96 12/30/17 08:46 Weight 308 lb 12/29/17 12/30/17 12/31/17 06:59 06:59 06:59 Intake Total 5349 102 8969 Output Total 1235 2450 Balance -35 860 -1220 - Physical Examination General/Neuro: NAD Neck: no JVD present Lungs: CTA, unlabored respirations Heart: other: (irreg) Abdomen: NT/ND Extremities: + edema B (1+) - Telemetry Telemetry Rhythm: NSR --> Afib HR 70's - Labs Result Diagrams: 12/29/17 05:27 12/29/17 05:27 Troponin/CKMB Troponin I 0.042 ng/mL (< 0.028) H 12/26/17 18:20 - Assessment/Plan 1. Afib RVR, paroxysmal now rate controlled. . 2. Non ischemic CM EF at 20-25%, dilated CM. 3. Mild to moderate CAD. 4. Acute on chronic systolic heart failure 5. Possible cirrhosis. 6. Hx of UGI bleed. 7. Medication non compliance. 8. Hallucinations. 9. Hyponatremia. PLAN; - On PO lasix now. - He is refusing lifevest. - Cannot up titrate BB or ACEI due to bordelrine low BP. - May discharge any time from cardiac perspective.
[2017-12-30] MEDS: Atorvastatin Calcium 20 MG TAB PO SCH (21:35)
[2017-12-31] MEDS: Furosemide 40 MG/4 ML VIAL SLOW IVP SCH ×2 (00:59→10:32)
[2017-12-31 05:33] LABS: Anion Gap 13 mmol/L (10-20); BUN (Urea Nitrogen) 17 mg/dL (8.4-25.7); Calc. Creatinine Clearance 146 mL/min (70-130); Calcium 9.3 mg/dL (7.8-10.44); Carbon Dioxide 32 mmol/L (23-31); Chloride 84 mmol/L (98-107); Estimated GFR-MDRD 77; Glucose 100 mg/dL (80-115); Potassium 3.7 mmol/L (3.5-5.1); Sodium 125 mmol/L (136-145)
[2017-12-31] MEDS: Levothyroxine Sodium 100 MCG TAB PO SCH (05:37)
[2017-12-31] MEDS: Potassium Chloride 20 MEQ TAB PO SCH (10:26)
[2017-12-31] MEDS: Bupropion 100 MG SR TAB PO SCH (10:27)
[2017-12-31] MEDS: Lisinopril 2.5 MG TAB PO SCH (10:27)
[2017-12-31] MEDS: Magnesium Oxide 400 MG TAB PO SCH (10:28)
[2017-12-31] MEDS: Docusate 100 MG CAP PO SCH (10:29)
[2017-12-31] MEDS: Folic Acid 1 MG TAB PO SCH (10:29)
[2017-12-31] MEDS: Fish Oil 1,000 MG CAP PO SCH (10:29)
[2017-12-31] MEDS: Multivitamin W/ Minerals 1 TAB PO SCH (10:29)
[2017-12-31] MEDS: Famotidine 20 MG TAB PO SCH (10:29)
[2017-12-31] MEDS: Spironolactone 25 MG TAB PO SCH (10:30)
[2017-12-31] MEDS: Enoxaparin Sodium 40 MG/0.4 ML SYRINGE SC SCH (10:30)
[2017-12-31] MEDS: Metoprolol Tartrate 25 MG TAB PO SCH (10:30)
[2017-12-31] MEDS: Fluticasone Propionate Nasal Spray 16 gm Bottle NASAL SCH (10:31)
[2017-12-31 10:33] VITALS: BP 109/84
--- NOTE | 2017-12-31 11:43 | DIS ---
DATE OF ADMISSION: 12/26/2017 DATE OF DISCHARGE: 12/30/2017 DISCHARGE DIAGNOSES: 1. Acute metabolic encephalopathy, multifactorial, improved. 2. Nonischemic cardiomyopathy with ejection fraction of 25%, declining LifeVest. 3. Chronic atrial fibrillation with variable rate. 4. Acute on chronic systolic congestive heart failure with ejection fraction of 25%. 5. Hypokalemia, improved. 6. Alcohol abuse. 7. Hyponatremia, multifactorial, improved. 8. Hypertension, stable. 9. Hypothyroidism, stable. 10. Morbid obesity. 11. Deconditioning. CONSULTATIONS: Dr. Gonzalez with Cardiology service. Dr. Abreu with Neurology Service. PERTINENT LABORATORY AND X-RAY FINDINGS: Sodium ranged between 123-125, potassium ranged between 3.0 -3.9, magnesium level ranged between 1.6-1.8, serum ammonia level 51. BNP 985. CBC showed hemoglobi n ranging between 13.0-13.8. A 2D transthoracic echocardiogram dated 12/27/2017 showed ejection frac tion of 20-25%. Right ventricular enlargement. Biatrial enlargement. Moderate tricuspid valve regu rgitation. CT of the brain without contrast dated 12/26/2017 showed no acute intracranial process. Mild chronic small vessel ischemic changes noted. HOSPITAL COURSE: The patient was initially admitted to the telemetry unit after presenting with alte red mentation, likely multifactorial. The patient with chronic alcohol abuse as well as multiple met abolic derangements likely contributing to presentation. The patient was initially treated for acute atrial fibrillation with rapid ventricular response, rate controlled with IV and oral medications. The patient was also noted with an acute exacerbation of chronic congestive heart failure with systol ic dysfunction. The patient was placed on IV Lasix therapy with slow clinical improvement and diures is. The patient was evaluated by the Cardiology service with recommendations for medical management as patient's underlying cardiomyopathy is nonischemic. Due to the patient's depressed ejection fract ion and concern for life threatening arrhythmias, the patient was evaluated for potential LifeVest ap plication. The patient currently declining LifeVest after the risks and benefits were reviewed with the patient. The patient was also noted with encephalopathic changes, likely multifactorial includin g alcohol abuse and hyponatremia. The patient had minimal improvement in hyponatremia, likely multif actorial process including volume overload in addition to syndrome of inappropriate antidiuretic horm one in the context of long-term SSRI use. The patient was held on Lexapro with plans for monitoring of sodium values on an ongoing basis after discharge. The patient may be an appropriate candidate fo r discontinuation of SSRI therapy until sodium levels correct. The patient received general supporti ve measures including thiamine, multivitamin, and one-on-one observation with overall improved mental status functioning prior to discharge. The patient remained clinically stable with current telemetr y monitoring showing atrial fibrillation with variable rate into the 90s to low 100s. The patient is ambulating short distances without assistance and tolerating regular oral intake. Overall, the bella ent is clinically stabilized and ready for discharge on 12/31/2017. DISCHARGE MEDICATIONS: 1. Enteric coated aspirin 81 mg 1 tablet p.o. daily. 2. Bupropion 100 mg 1 tablet p.o. b.i.d. 3. Coreg 6.25 mg p.o. b.i.d. 4. Digoxin 0.125 mg p.o. daily. 5. Colace 100 mg p.o. daily. 6. Lexapro 20 mg p.o. daily, hold until 01/03/2018. 7. Aurora-3 fatty acids 1000 mg p.o. daily. 8. Flonase 1 spray in each naris b.i.d. 9. Folic acid 1 mg p.o. daily. 10. Lasix 40 mg p.o. b.i.d. x3 days followed by 40 mg p.o. daily. 11. Synthroid 100 mcg p.o. daily. 12. Zestril 2.5 mg 1 tablet p.o. daily. 13. Protonix 40 mg 1 tablet p.o. b.i.d. 14. K-Dur 20 mEq one tablet p.o. daily. 15. Simvastatin 40 mg p.o. at bedtime. 16. Aldactone 12.5 mg p.o. daily. 17. Thiamine 100 mg p.o. daily. 18. TobraDex ophthalmic ointment one application each eye daily p.r.n. FOLLOWUP: The patient will follow up with Dr. Mary Webb within [address] [facility] ient will follow up with Dr. Gonzalez with Cardiology Service and to call her office for appointment ti me and date. CONDITION ON DISCHARGE: Fair. ACTIVITY: Ad jodee. DIET: Heart healthy. SPECIAL INSTRUCTIONS: The patient currently declining LifeVest application. CODE STATUS: FULL. DISPOSITION: Home, 12/31/2017. Total time preparing and coordinating discharge was 38 minutes.
[2017-12-31 21:33] VITALS: TEMP 97.1
== END 2017-12-31 18:40 | disposition home or self-care (01) | DRG 291 ==
LOC: ERS 14:07 → 2NO 15:49
PROVIDERS: ADMIT Family Medicine; ATTEND Family Medicine
DX: I11.0 Hypertensive heart disease with heart failure (principal); G93.41 Metabolic encephalopathy; E22.2 Syndrome of inappropriate secretion of antidiuretic hormone; I42.0 Dilated cardiomyopathy; I24.8 Other forms of acute ischemic heart disease; I48.1 Persistent atrial fibrillation; R44.3 Hallucinations, unspecified; Z68.41 Body mass index [BMI] 40.0-44.9, adult; I48.0 Paroxysmal atrial fibrillation; I50.23 Acute on chronic systolic (congestive) heart failure; E66.01 Morbid (severe) obesity due to excess calories; I50.31 Acute diastolic (congestive) heart failure; I42.6 Alcoholic cardiomyopathy; E87.70 Fluid overload, unspecified; I48.2 Chronic atrial fibrillation; E87.6 Hypokalemia; E03.9 Hypothyroidism, unspecified; E78.5 Hyperlipidemia, unspecified; I25.10 Atherosclerotic heart disease of native coronary artery without angina pectoris; F10.20 Alcohol dependence, uncomplicated; Z91.14 Patient's other noncompliance with medication regimen
CPT/HCPCS: 36415; 70450; 80048; 80162; 82140; 83735; 83880; 85025; 90471; 90682; 93306; 93798; 94760; 96374; G0008; G8978-GP-CL; G8979-GP-CI; G8987-GO-CK; G8988-GO-CJ; G8996-GN-CH; G8997-GN-CH; J1650; J1940; J2060; J3475; J7050; Q2036; S0028

== ENCOUNTER 2018-01-28 13:17 | Observation (INO) | payer MEDICARE, OTHER ==
[2018-01-28 13:56] LABS: #Eosinphils 0.2 thou/uL (0.0-0.7); #Lymphocytes 2.3 thou/uL (1.20-3.40); #Monocytes 0.7 thou/uL (0.11-0.59); #Neutrophils 4.1 thou/uL (1.40-6.50); %Basophils 0.3 % (0.0-1.0); %Eosinophils 2.2 % (0.0-10.0); %Lymphocytes 31.5 % (21.0-51.0); %Neutrophils 55.9 % (42.0-75.0); Hemoglobin 16.9 g/dL (14.0-18.0); Mean Corpuscular HGB CONC 33.4 g/dL (32.0-36.0); Mean Corpuscular Hemoglobin 32.7 pg (27.0-31.0); Mean Platelet Volume 7.7 fL (7.4-10.4); Platelet Count 306 thou/uL (130-400); RBC Distribution Width 13.3 % (11.5-14.5); Red Blood Cell (RBC) Count 5.17 mill/uL (4.70-6.10); White Blood Cell (WBC) Count 7.3 thou/uL (4.8-10.8)
[2018-01-28 14:18] LABS: ALT (SGPT) 48 U/L (8-55); AST (SGOT) 56 U/L (5-34); Albumin 4.1 g/dL (3.4-4.8); Alkaline Phosphatase 88 U/L (40-150); Anion Gap 15 mmol/L (10-20); BUN (Urea Nitrogen) 30 mg/dL (8.4-25.7); Bilirubin, Total 0.8 mg/dL (0.2-1.2); CK (CPK) 35 U/L (30-200); Calc. Creatinine Clearance 0 mL/min (70-130); Calcium 9.8 mg/dL (7.8-10.44); Carbon Dioxide 26 mmol/L (23-31); Chloride 104 mmol/L (98-107); Estimated GFR-MDRD 58; Globulin 3.4 g/dL (2.4-3.5); Glucose 87 mg/dL (80-115); Potassium 4.8 mmol/L (3.5-5.1); Protein, Total 7.5 g/dL (5.8-8.1); Sodium 140 mmol/L (136-145)
[2018-01-28 14:23] LABS: Troponin I 0.014 ng/mL (< 0.028)
--- NOTE | 2018-01-28 14:41 | RAD ---
CHEST ONE VIEW: History: Hypotension. Dyspnea. Comparison: 12-26-17 FINDINGS: Cardiac silhouette is magnified and enlarged. Pulmonary vasculature is accentuated by shallow inspira tion and slightly engorged. Mediastinum is midline with aortic calcification. Calcified granulomata a re consistent with healed with granulomatous disease. IMPRESSION: 1. Mild cardiomegaly. Pulmonary vascular congestion. 2. Atherosclerosis. POS: [facility]
[2018-01-28] MEDS ORDERED: Ondansetron HCl/PF 4 MG/2 ML Vial IVP PRN (17:06)
[2018-01-28] MEDS ORDERED: Ondansetron ODT 4 MG TAB SL PRN (17:06)
[2018-01-28 17:31] VITALS: BMI 34.7
[2018-01-28] MEDS ORDERED: Docusate 100 MG CAP PO PRN (19:00)
[2018-01-28] MEDS ORDERED: Acetaminophen 500 MG TAB PO PRN (19:00)
[2018-01-28] MEDS: Fluticasone Propionate Nasal Spray 16 gm Bottle NASAL SCH (20:12)
[2018-01-28] MEDS: buPROPion HCl 100 MG TAB PO SCH (20:13)
[2018-01-28] MEDS: Famotidine 20 MG TAB PO SCH (20:13)
[2018-01-28] MEDS: Carvedilol 6.25 MG TAB PO SCH (20:13)
[2018-01-28 20:24] LABS: Troponin I 0.012 ng/mL (< 0.028)
[2018-01-28] MEDS ORDERED: Simvastatin 40 MG TAB PO SCH (21:00)
[2018-01-29 05:27] LABS: #Eosinphils 0.2 thou/uL (0.0-0.7); #Lymphocytes 2.6 thou/uL (1.20-3.40); #Monocytes 0.7 thou/uL (0.11-0.59); #Neutrophils 2.9 thou/uL (1.40-6.50); %Basophils 0.7 % (0.0-1.0); %Eosinophils 3.1 % (0.0-10.0); %Lymphocytes 40.5 % (21.0-51.0); %Monocytes 10.8 % (0.0-10.0); %Neutrophils 44.9 % (42.0-75.0); Hemoglobin 16.1 g/dL (14.0-18.0); Mean Corpuscular HGB CONC 33.8 g/dL (32.0-36.0); Mean Corpuscular Volume 97.6 fl (80.0-94.0); Platelet Count 268 thou/uL (130-400); RBC Distribution Width 13.3 % (11.5-14.5); Red Blood Cell (RBC) Count 4.88 mill/uL (4.70-6.10); White Blood Cell (WBC) Count 6.4 thou/uL (4.8-10.8)
[2018-01-29 05:48] LABS: Anion Gap 14 mmol/L (10-20); BUN (Urea Nitrogen) 29 mg/dL (8.4-25.7); Calc. Creatinine Clearance 110 mL/min (70-130); Calcium 9.7 mg/dL (7.8-10.44); Carbon Dioxide 25 mmol/L (23-31); Chloride 103 mmol/L (98-107); Estimated GFR-MDRD 74; Glucose 90 mg/dL (80-115); Potassium 4.5 mmol/L (3.5-5.1); Sodium 137 mmol/L (136-145)
[2018-01-29] MEDS ORDERED: Enoxaparin Sodium 40 MG/0.4 ML SYRINGE SC SCH (09:00)
[2018-01-29] MEDS ORDERED: Spironolactone 25 MG TAB PO SCH (09:00)
[2018-01-29] MEDS ORDERED: Folic Acid 1 MG TAB PO SCH (09:00)
[2018-01-29] MEDS ORDERED: Digoxin 0.125 MG TAB PO SCH (09:00)
[2018-01-29] MEDS ORDERED: Enoxaparin Sodium 30 MG/0.3 ML SYRINGE SC SCH (09:00)
[2018-01-29] MEDS: Carvedilol 6.25 MG TAB PO SCH (09:39)
[2018-01-29] MEDS: Famotidine 20 MG TAB PO SCH (09:39)
[2018-01-29] MEDS: buPROPion HCl 100 MG TAB PO SCH (09:40)
[2018-01-29] MEDS: Fluticasone Propionate Nasal Spray 16 gm Bottle NASAL SCH (09:44)
[2018-01-29 11:29] VITALS: BP 113/77; TEMP 98.2
--- NOTE | 2018-01-29 12:35 | PDOC.EVN ---
Event Note - Event Note Event Note: Short stay summary for admission and discharge w/in 24 hrs Dictation# [id number]
--- NOTE | 2018-01-29 13:00 | SS ---
DATE OF ADMISSION: 01/29/2018 PRIMARY CARE PHYSICIAN: Dr. Webb. PRESS OPERATOR PRINTING: Dr. Gonzalez. CHIEF COMPLAINT: Dizziness and low blood pressure. HISTORY OF PRESENT ILLNESS: A 67-year-old male with known history of systolic heart failure who was recently hospitalized for acute heart failure, who was sent in by home health secondary to low blood pressures reportedly systolic in the 60s with accompanying episodic dizziness. He states that he has been having low blood pressures ever since going home. He reports blood pressures anywhere from the 60s to the 90s. The patient was seen initially in the emergency department where he received 1 liter IV fluid with resolution of dizziness. Patient was admitted overnight and was observed. Patient's home medications were continued including all of his antihypertensives and beta blockers. The patient's blood pressures have remained stable with the cessation of Lasix overnight. At the time of discharge, the patient's vital signs are stable and he is being discharged on his complete home regimen with the single change in his home Lasix which has been decreased from 40 mg p.o. daily to 20 mg p.o. every other day and instructions to check a blood pressure before self- administration and to hold the medication if systolic blood pressure is less than 100 mmHg. This was discussed with the patient at bedside who was able to complete teach back. The remainder of the patient's other chronic medical issues were stable during this hospitalization. REVIEW OF SYSTEMS: Constitutional: The patient denies any recent fevers, chills, or significant weight changes, although he feels like he may have been losing weight from constantly peeing. ENT: Denies any congestion. Dizziness as noted above. Denies any blurred vision. Denies any episodes of passing out or almost passing out. Cardiovascular: Denies any overt chest pain, chest pressure, shortness of breath, diaphoresis. Respiratory: Denies any new upper respiratory complaints. Has an occasional cough which has not occurred in the last week to 2 weeks. Denies any congestion, postnasal drip or ear pain. Gastrointestinal: Denies any nausea, denies any vomiting, denies any diarrhea or constipation. Reports retained appetite. Genitourinary: Notes that he has been urinating a fair amount, but denies any dysuria or difficulty with urination starting or stopping. Musculoskeletal: Denies any new myalgias, arthralgia. PAST MEDICAL HISTORY: Significant for, 1. Congestive heart failure, systolic. 2. Obesity. 3. Hyperlipidemia. 4. Hypertension. 5. Paroxysmal atrial fibrillation. 6. History of cardiac disease. 7. History of gastroesophageal disease with peptic ulcer bleed in the past. 8. Hypothyroidism. 9. Asthma. 10. Alcoholic use. PAST SURGICAL HISTORY: Status post laparoscopic gastric banding, status post cholecystectomy, status post tonsillectomy, status post adenoidectomy, status post right ankle surgery, status post left knee replacement. HOME MEDICATIONS: Please see the EMR for full details. The patient denies any changes since his last discharge from our facility. FAMILY HISTORY: The patient is unable to recall any family history of cardiovascular disease or chronic orthostatic hypotension. SOCIAL HISTORY: The patient states that he has not had any alcoholic drink since his last discharge, although in prior records, it appears that he has history of alcoholism and drinks about 2-3 times a week. The patient denies any tobacco use of any kind. Denies any illicit drug use. He was offered a LifeVest on his last hospitalization and declined. He again declines today, although he states that he does wish to be full code and designates his as his medical decision maker if he is unable to make his own medical decisions. PHYSICAL EXAMINATION: VITAL SIGNS: At the time of discharge, patient's vital signs are stable. Temperature 98.2, pulse 93, respirations 18, satting 94% on room air, blood pressure 113/77. GENERAL: The patient is awake, alert, oriented x3, no acute distress, seated on the hospital bed. Oriented x3 HEENT: Moist mucous membranes, normocephalic, atraumatic. CARDIOVASCULAR: S1, S2. Soft heart tones. Pulses 2+ bilateral upper extremities, no pitting pedal edema. RESPIRATORY: Grossly clear to auscultation. Marginal air movement. No wheezes , rales or rhonchi. ABDOMEN: Obese, positive bowel sounds, soft, nontender to palpation. MUSCULOSKELETAL: Moving all 4 extremities. SIGNIFICANT LABORATORY AND IMAGING DATA: Chest x-ray on admission demonstrates a "mild cardiomegaly, pulmonary vascular congestion, atherosclerosis." DISCHARGE MEDICATIONS: Please see discussion above. Patient is otherwise to continue on his home regimen with a decrease in the Lasix both frequency and amount to 20 mg every other day. DISCHARGE INSTRUCTIONS: The patient has been asked to follow up with the primary care provider and Cardiology on an outpatient basis. The patient is being sent home to resume his home health and home physical therapies as well. Thank you for asking me to care for the patient. Questions or concerns, please contact me at [facility]. SCOTT
== END 2018-01-29 14:40 | disposition home or self-care (01) ==
LOC: ERS 13:17 → 2SW 15:57
PROVIDERS: ADMIT Internal Medicine; ATTEND Internal Medicine
DX: R42 Dizziness and giddiness (principal); R03.1 Nonspecific low blood-pressure reading; I11.0 Hypertensive heart disease with heart failure; I50.20 Unspecified systolic (congestive) heart failure; E66.9 Obesity, unspecified; E78.5 Hyperlipidemia, unspecified; I48.0 Paroxysmal atrial fibrillation; K21.9 Gastro-esophageal reflux disease without esophagitis; E03.9 Hypothyroidism, unspecified; J45.909 Unspecified asthma, uncomplicated; Z68.34 Body mass index [BMI] 34.0-34.9, adult; Z79.82 Long term (current) use of aspirin; Z79.2 Long term (current) use of antibiotics; Z79.51 Long term (current) use of inhaled steroids; Z79.899 Other long term (current) drug therapy; Z98.84 Bariatric surgery status; Z96.652 Presence of left artificial knee joint; Z90.49 Acquired absence of other specified parts of digestive tract; Z90.89 Acquired absence of other organs; Z98.890 Other specified postprocedural states
CPT/HCPCS: 71045; 80048; 80053; 82550; 82553; 83880; 84484 ×2; 85025 ×2; 93005; 96372; 99291; G0378; 36415; J1650

== ENCOUNTER → 2018-09-29 | Day surgery (SDC) | payer MEDICARE, OTHER ==
[~2018-09-29] MED LIST: CEFAZOLIN 1 GM VIAL ONE; Fentanyl 100 MCG/2 ML VIAL ONE; Iopamidol 370 76% 50 ML VIAL FS ONE; Ketamine 50 MG/ML VIAL ONE; Lidocaine 1% (PF) 30 ML VIAL ONE; Midazolam HCl 2 mg/2 ml Vial ONE; Propofol 1,000 MG/100 ML VIAL IV ONE
[2018-09-29 10:31] LABS: #Basophils 0.1 thou/uL (0.0-0.2); #Eosinphils 0.2 thou/uL (0.0-0.7); #Lymphocytes 1.9 thou/uL (1.20-3.40); #Monocytes 0.7 thou/uL (0.11-0.59); #Neutrophils 4.5 thou/uL (1.40-6.50); %Basophils 1.1 % (0.0-1.0); %Eosinophils 2.1 % (0.0-10.0); %Lymphocytes 25.9 % (21.0-51.0); %Monocytes 9.4 % (0.0-10.0); %Neutrophils 61.5 % (42.0-75.0); Hemoglobin 14.8 g/dL (14.0-18.0); Mean Corpuscular Volume 99.8 fL (78.0-98.0); Mean Platelet Volume 8.6 fL (7.4-10.4); Platelet Count 233 thou/uL (130-400); RBC Distribution Width 12.8 % (11.5-14.5); Red Blood Cell (RBC) Count 4.49 mill/uL (4.70-6.10); White Blood Cell (WBC) Count 7.4 thou/uL (4.8-10.8)
[2018-09-29 10:39] LABS: INR-International Normal Ratio 1.2; PTT 30.7 SEC (22.9-36.1); Prothrombin Time 14.9 SEC (12.0-14.7)
[2018-09-29 10:53] LABS: Anion Gap 16 mmol/L (10-20); BUN (Urea Nitrogen) 14 mg/dL (8.4-25.7); Calc. Creatinine Clearance 0 mL/min (70-130); Calcium 9.8 mg/dL (7.8-10.44); Carbon Dioxide 24 mmol/L (23-31); Chloride 107 mmol/L (98-107); Estimated GFR-MDRD 90; Glucose 103 mg/dL (80-115); Potassium 4.6 mmol/L (3.5-5.1); Sodium 142 mmol/L (136-145)
--- NOTE | 2018-09-29 18:16 | RAD ---
CHEST ONE VIEW: HISTORY: Status post pacemaker placement. COMPARISON: 01/28/2018 FINDINGS: Portable upright chest demonstrates interval placement of a left-sided transvenous pacemaker. Exact lead position is difficult to determine but appears to be in the region of the right atrium, coronary sinus, and right ventricle. A two view chest radiograph would be beneficial. The heart is normal i n size. There are linear opacities in the right upper lobe, with elevation of the right hemidiaphragm, sugges ting right upper lobe atelectasis. No significant pleural effusion. No definite pneumothorax. IMPRESSION: 1. Right upper lobe atelectasis. 2. Atherosclerosis. 3. Right-sided transvenous defibrillator with limited evaluation of lead position. Dedicated two vi ew chest radiograph is recommended. POS: [facility]
--- NOTE | 2018-09-30 08:49 | EKG ---
Test Reason : PREOP Blood Pressure : / mmHG Vent. Rate : 074 BPM Atrial Rate : 065 BPM P-R Int : 000 ms QRS Dur : 198 ms QT Int : 458 ms P-R-T Axes : 000 -39 103 degrees QTc Int : 508 ms Electronic ventricular pacemaker When compared with ECG of 28-JAN-2018 13:41, (Unconfirmed) Electronic ventricular pacemaker has replaced Atrial fibrillation Confirmed by DR. Karmen BURLESON ([id number]) on 09/30/2018 8:49:14 AM Referred By: RAEANN Confirmed By:DR. Karmen BURLESON
== END ==
LOC: CCL 09:37
PROVIDERS: ATTEND Internal Medicine Cardiovascular Disease
PROC: 02HK0JZ Insertion of Pacemaker Lead into Right Ventricle, Open Approach (ICD-10-PCS; principal; 2018-09-29)
PROC: 02PA3MZ Removal of Cardiac Lead from Heart, Percutaneous Approach (ICD-10-PCS; 2018-09-29)
DX: T82.110A Breakdown (mechanical) of cardiac electrode, initial encounter (principal); I11.0 Hypertensive heart disease with heart failure; I50.22 Chronic systolic (congestive) heart failure; I48.2 Chronic atrial fibrillation; I42.8 Other cardiomyopathies; F17.210 Nicotine dependence, cigarettes, uncomplicated; E03.9 Hypothyroidism, unspecified; E78.5 Hyperlipidemia, unspecified; J44.9 Chronic obstructive pulmonary disease, unspecified; Z79.01 Long term (current) use of anticoagulants; Z79.899 Other long term (current) drug therapy; Z79.82 Long term (current) use of aspirin; Z98.84 Bariatric surgery status
CPT/HCPCS: 33216; 33234; 36005; 71045; 75820; 93005; 93010; 96374; J0690; J2001; J2250; J2704; J3010; J3490

== ENCOUNTER 2019-04-17 15:41 | Inpatient (IN) | payer MEDICARE, OTHER ==
[2019-04-17 16:04] LABS: Actual Bicarbonate (HCO3a) 19.6 mEq/L (22-28); Analyzer IN Cardio ER; Base Excess (BEa) -3.7 mEq/L (-2.0 to +3.0); CO2 Tension 30.6 mmHg (35.0-45.0); Calcium, Ionized 1.13 mmol/L (1.12-1.30); Carboxyhemoglobin (COHb) 0.9 gm% (0.0-3.0); Hemoglobin (Hb) 13.4 g/dL (14.0-18.0); O2 Tension (PaO2) 82.4 mmHg (> 80.0); Potassium - ABG Lab 3.79 mmol/L (3.70-5.30); pH, Arterial 7.42 (7.35-7.45)
[2019-04-17 16:05] LABS: Puncture Site LRA
[2019-04-17] MEDS ORDERED: Ondansetron ODT 4 MG TAB SL PRN (18:54)
[2019-04-17] MEDS ORDERED: Sodium Chloride 0.9% 1,000 ML IV SCH ×3 (18:54→19:45)
[2019-04-17] MEDS ORDERED: Ondansetron PF 4 MG/2 ML Vial IVP PRN (18:54)
[2019-04-17 19:39] VITALS: BMI 41.5
[2019-04-17 20:50] LABS: Anion Gap 21 mmol/L (10-20); Carbon Dioxide 23 mmol/L (23-31); Chloride 99 mmol/L (98-107); Magnesium 1.4 mg/dL (1.6-2.6); Potassium 3.7 mmol/L (3.5-5.1); Sodium 139 mmol/L (136-145)
[2019-04-17 20:59] LABS: Troponin I 0.067 ng/mL (< 0.028)
[2019-04-17] MEDS ORDERED: Carvedilol 25 MG TAB PO SCH (21:00)
[2019-04-17] MEDS: Apixaban 5 MG TAB PO SCH (21:20)
[2019-04-17] MEDS: Famotidine 20 MG TAB PO SCH (21:20)
[2019-04-17] MEDS ORDERED: Carvedilol 6.25 MG TAB PO SCH (21:45)
[2019-04-17] MEDS ORDERED: Magnesium 2 GM/50 ML 2 GM in Premix Bag 1 BAG IVPB SCH (22:00)
[2019-04-17] MEDS ORDERED: Simvastatin 20 MG TAB PO SCH (22:00)
[2019-04-17] MEDS ORDERED: buPROPion HCl 100 MG TAB PO SCH (22:00)
[2019-04-17 22:24] LABS: Amphetamine Not Detected (NotDetected); Barbiturates Screen Not Detected (NotDetected); Benzodiazepine Screen Not Detected (NotDetected); Cocaine Metabolite Screen Not Detected (NotDetected); Medtox Control Line Valid? VALID (VALID); Medtox Reader # READER 1; Methadone Not Detected (NotDetected); Methamphetamine Not Detected (NotDetected); Opiate Screen Not Detected (NotDetected); Oxycodone Screen Not Detected (NotDetected); Phencyclidine (PCP) Not Detected (NotDetected); THC/Cannabinoid Screen Not Detected (NotDetected); Tricyclic Screen Not Detected (NotDetected)
--- NOTE | 2019-04-17 23:40 | RAD ---
EXAM: Single view of the chest HISTORY: Congestive heart failure; presyncope COMPARISON: 09/29/2018 FINDINGS: Single view of the chest shows a normal sized cardiomediastinal silhouette. The pacemaker is unchanged in position. There is stable elevation of the right hemidiaphragm. There is no evidence of consolidation, mass, or pleural effusion. The bones are unremarkable. IMPRESSION: No evidence of acute cardiopulmonary disease
--- NOTE | 2019-04-18 00:46 | HP ---
CHIEF COMPLAINT: Near syncope. HISTORY OF PRESENT ILLNESS: Mr. Franks is a 68-year-old man, who was transferred from [place] after he was evaluated for a presyncopal episode. The patient had taken his to the ER because she was unwell and when he stepped out of his truck, he states suddenly his vision went white and he began to feel lightheaded. He walked back toward the truck and denies any syncope. He states the staff came and brought him into the ED via wheelchair. He denies having any chest pain or shortness of breath associated with it. He reports feeling slightly clammy. The patient states he did not have anything to eat at all today due to being with his who is unwell. He denies any nausea or vomiting. No headache. He denies any associated abdominal pain. The patient states this lasted approximately 30 minutes or where he continued to feel "foggy" and blurred vision. After that, he has returned to baseline and remains without any complaints. At [place], he underwent laboratory studies including full blood count which was notable for a platelet count of 82 and hemoglobin of 12.6. Also noted to have an elevated lactic acid of 2.8. His magnesium was around 1.4, and this was replaced. Total bilirubin level elevated at 1.6. His troponin was indeterminate at 0.102 and second troponin 0.060. BNP was 168.6. The patient is being admitted for monitoring and further evaluation. PAST MEDICAL HISTORY: 1. The patient reports having a history of atrial fibrillation and has a permanent pacemaker in place. 2. CHF. 3. Daily alcohol use. He reports drinking 2 glasses of vodka with cranberry every night, unable to specify the quantity. 4. Anemia. 5. Peptic ulcer disease. 6. Generalized muscle weakness. 7. Hypothyroidism. 8. GERD. 9. Cardiomyopathy. 10. Hyperlipidemia. 11. . 12. Depression. 13. Anxiety. PAST SURGICAL HISTORY: 1. Umbilical hernia. 2. Cholecystectomy. 3. Lap-Band. 4. Orthopedic surgery. 5. Left knee surgery. 6. Right ankle surgery. 7. Pacemaker placed in 2018. SOCIAL HISTORY: The patient reports drinking 2 glasses of vodka and cranberry a night before bedtime. Denies any history of withdrawal seizures. Denies any tobacco use or illicit drug use. ALLERGIES: NO KNOWN DRUG ALLERGIES. CURRENT MEDICATIONS: The patient states he is unaware of what medications he takes and states his maintains that list. Unable to verify at this time. PHYSICAL EXAMINATION: GENERAL: The patient is found resting comfortably on the stretcher. He is obese, well developed, in no acute distress. VITAL SIGNS: Temperature 98.7, pulse 87, respirations 18, O2 saturation 96% on room air, blood pressure 138/87. HEENT: Normocephalic and atraumatic. Pupils are equal, round, and reactive to light. Sclerae are without icterus. Oropharynx is clear. NECK: Supple. LUNGS: Clear to auscultation bilaterally. CARDIAC: Regular rate and rhythm. ABDOMEN: Obese. Some abnormal nodularity felt in the left abdomen with palpation. The patient states this is associated with his Lap-Band. No guarding or rigidity. No tenderness. No renal angle tenderness. EXTREMITIES: No lower leg swelling or edema. NEUROLOGIC: Alert and oriented x3. No focal deficits. SKIN: Without rash or jaundice. He does appear slightly diaphoretic and normal color. No pallor. INVESTIGATIONS: As mentioned above in HPI. Last echocardiogram was done, December 27, 2017, which time, he was noted to have an EF of 20% to 25%, atrial fibrillation during the study, enlarged right ventricle cavity, moderate biatrial enlargement, mild mitral regurgitation and moderate tricuspid regurgitation with a small pericardial effusion and no tamponade. IMPRESSION AND PLAN: Mr. Franks is a 68-year-old man, who is being admitted for management of the following. 1. Presyncope. The patient feels this was associated with the fact that . He denies any associated symptoms. He does have a known history of atrial fibrillation and low EF with a pacemaker in place. We will obtain a pacemaker printout. Orthostatic blood pressures requested routinely with vital signs. We will obtain a chest x-ray and have requested an echocardiogram as it has been more than a year from his last one. The patient does not recall who his plastic parts fabricator trimmer is, but it appears he has been seen by Dr. Gonzalez, who last filled his medication. We will leave Day Team to decide if cardiology consult is indicated. BNP requested. 2. Electrolyte disturbances. Low potassium and low magnesium. Both replaced. Continue to monitor. 3. Hyperbilirubinemia. The patient with known history of alcohol excess. AST mildly elevated at 66. We will obtain lipase. The patient without any complaints of abdominal pain. Continue to monitor. 4. Alcohol abuse. The patient drinks daily and does have an intentional tremor on exam. We will initiate VERNELL protocol. Ativan p.r.n. ordered. 5. Gastrointestinal prophylaxis. 6. Deep venous thrombosis prophylaxis with mechanical SCDs. 7. Full code status. His surrogate decision maker is his , Ashley Franks. The patient's case to be discussed with attending for further recommendations. Job ID: [id number]
[2019-04-18 05:39] LABS: Anion Gap 15 mmol/L (10-20); BUN (Urea Nitrogen) 13 mg/dL (8.4-25.7); Calc. Creatinine Clearance 129 mL/min (70-130); Calcium 9.3 mg/dL (7.8-10.44); Carbon Dioxide 24 mmol/L (23-31); Chloride 101 mmol/L (98-107); Estimated GFR-MDRD 73; Glucose 126 mg/dL (80-115); Potassium 3.4 mmol/L (3.5-5.1); Sodium 137 mmol/L (136-145)
[2019-04-18] MEDS: Levothyroxine Sodium 112 MCG TAB PO SCH (05:57)
[2019-04-18] MEDS: buPROPion HCl 100 MG TAB PO SCH (08:27)
[2019-04-18] MEDS: Aspirin 81 mg Enteric Coated Tablet PO SCH (08:27)
[2019-04-18] MEDS: Carvedilol 6.25 MG TAB PO SCH ×2 (08:27→18:06)
[2019-04-18] MEDS: Digoxin 0.125 MG TAB PO SCH (08:27)
[2019-04-18] MEDS: Apixaban 5 MG TAB PO SCH ×2 (08:27→21:01)
[2019-04-18] MEDS: Spironolactone 25 MG TAB PO SCH (08:28)
[2019-04-18] MEDS: Thiamine 100 MG TAB PO SCH (08:28)
[2019-04-18] MEDS: Famotidine 20 MG TAB PO SCH ×2 (08:28→21:01)
[2019-04-18] MEDS: Folic Acid 1 MG TAB PO SCH (08:28)
[2019-04-18] MEDS: Sacubitril 24.5 MG/Valsartan 25.5 MG TABLET PO SCH ×2 (08:28→21:01)
[2019-04-18] MEDS ORDERED: Digoxin 0.25 MG TAB PO SCH (09:00)
[2019-04-18] MEDS ORDERED: Potassium Chloride 20 MEQ TAB PO SCH (09:00)
[2019-04-18 10:27] LABS: #Lymphocytes 0.9 thou/uL (1.20-3.40); #Monocytes 0.5 thou/uL (0.11-0.59); #Neutrophils 3.1 thou/uL (1.40-6.50); %Basophils 0.6 % (0.0-1.0); %Eosinophils 0.8 % (0.0-10.0); %Lymphocytes 19.4 % (21.0-51.0); %Monocytes 10.6 % (0.0-10.0); %Neutrophils 68.6 % (42.0-75.0); Hemoglobin 12.2 g/dL (14.0-18.0); Hypochromia SLIGHT = 6-15 cells (100X) (0-5/hpf); MDiff Complete? YES; Mean Corpuscular HGB CONC 33.2 g/dL (32.0-36.0); Mean Corpuscular Hemoglobin 33.2 pg (27.0-31.0); Mean Platelet Volume 8.6 fL (7.4-10.4); Microcytosis SLIGHT = 6-15 cells (100X) (0-5/hpf); Ovalocytes SLIGHT = 2-5 cells (100X) (0-1/hpf); Platelet Count 79 thou/uL (130-400); Platelet Morphology Comment Appears Decreased; RBC Distribution Width 13.3 % (11.5-14.5); Red Blood Cell (RBC) Count 3.66 mill/uL (4.70-6.10); White Blood Cell (WBC) Count 4.5 thou/uL (4.8-10.8)
--- NOTE | 2019-04-18 16:28 | PDOC.PN ---
- Subjective Encounter Start Date: 04/18/19 Encounter Start Time: 16:26 He denies overnight events, no chest pain, palpitations, dizziness, shortness of breath. Orthostatics negative. Electrolytes improved, echo was a bad study, therefore repeat ordered and pending. - Objective Resuscitation Status - Order Detail: 04/17/19 19:05 Resuscitation Status Routine Co-Sign Provider: Resuscitation Status: FULL: Full Resuscitation MAR Reviewed: Yes Vital Signs & Weight: Vital Signs (12 hours) Temp Pulse Resp BP BP BP BP 04/18/19 16:02 98.1 F 82 16 126/82 04/18/19 12:20 97.7 F 80 20 116/70 105/60 04/18/19 12:00 117/64 04/18/19 08:27 91 130/78 04/18/19 08:00 130/78 04/18/19 07:38 97.5 F L 91 20 130/78 BP Pulse Ox 04/18/19 16:02 94 L 04/18/19 12:20 117/64 95 04/18/19 12:00 04/18/19 08:27 04/18/19 08:00 04/18/19 07:38 94 L Weight Weight 289 lb 4.8 oz I&O: 04/17/19 04/18/19 04/19/19 06:59 06:59 06:59 Intake Total 766 Output Total 325 Balance 441 Result Diagrams: 04/18/19 05:03 04/18/19 05:03 Radiology Reviewed by me: Yes Phys Exam - Physical Examination Constitutional: NAD HEENT: oral pharynx no lesions Neck: supple Respiratory: no wheezing, no rales, clear to auscultation bilateral Cardiovascular: RRR, no significant murmur Gastrointestinal: soft, positive bowel sounds Musculoskeletal: no edema, pulses present Neurological: non-focal, moves all 4 limbs Lymphatic: no nodes Psychiatric: A&O x 3 Skin: cap refill <2 seconds Dx/Plan (1) Pre-syncope Status: Acute (2) Acute on chronic systolic heart failure Code(s): I50.23 - ACUTE ON CHRONIC SYSTOLIC (CONGESTIVE) HEART FAILURE Status : Acute (3) Hypokalemia Code(s): E87.6 - HYPOKALEMIA Status: Acute Comment: Improved (4) Hypomagnesemia Code(s): E83.42 - HYPOMAGNESEMIA Status: Acute (5) ETOH abuse Code(s): F10.10 - ALCOHOL ABUSE, UNCOMPLICATED Status: Chronic (6) HLD (hyperlipidemia) Code(s): E78.5 - HYPERLIPIDEMIA, UNSPECIFIED Status: Chronic Qualifiers: Hyperlipidemia type: unspecified Qualified Code(s): E78.5 - Hyperlipidemia , unspecified (7) HTN (hypertension) Code(s): I10 - ESSENTIAL (PRIMARY) HYPERTENSION Status: Chronic Qualifiers: Hypertension type: essential hypertension Qualified Code(s): I10 - Essential (primary) hypertension (8) Hypothyroid Code(s): E03.9 - HYPOTHYROIDISM, UNSPECIFIED Status: Chronic Qualifiers: Hypothyroidism type: unspecified Qualified Code(s): E03.9 - Hypothyroidism , unspecified (9) Chronic a-fib Code(s): I48.2 - CHRONIC ATRIAL FIBRILLATION Status: Acute - Plan cont current plan of care * Recheck orthostatics positive * Currently controlled a fib * Pacemaker unremarkable and working appropriately * Continue home medications * Continue on ASE * Recheck echo as the first was a bad study * Recheck BMP in am for electrolytes, replace as needed
[2019-04-18] MEDS ORDERED: Melatonin 3 MG TAB PO PRN (19:46)
[2019-04-18] MEDS: Simvastatin 20 MG TAB PO SCH (21:01)
[2019-04-18] MEDS: Loratadine 10 MG TAB PO PRN (21:01)
[2019-04-18] MEDS: Polyethylene Glycol OPTH DROP 15 ML BOT EA EYE PRN (21:02)
[2019-04-19] MEDS: Polyethylene Glycol OPTH DROP 15 ML BOT EA EYE PRN ×2 (01:03→05:37)
[2019-04-19] MEDS: Lorazepam 0.5 MG TAB PO PRN ×2 (01:03→21:04)
[2019-04-19] MEDS: Levothyroxine Sodium 112 MCG TAB PO SCH (05:34)
[2019-04-19 07:32] LABS: Calc. Creatinine Clearance 167 mL/min (70-130); Estimated GFR-MDRD Greater than 90
[2019-04-19 07:52] LABS: Hemoglobin 11.9 g/dL (14.0-18.0); Platelet Count 73 thou/uL (130-400)
[2019-04-19] MEDS: Apixaban 5 MG TAB PO SCH ×2 (08:44→21:03)
[2019-04-19] MEDS: Carvedilol 6.25 MG TAB PO SCH ×2 (08:44→16:54)
[2019-04-19] MEDS: Aspirin 81 mg Enteric Coated Tablet PO SCH (08:44)
[2019-04-19] MEDS: buPROPion HCl 100 MG TAB PO SCH (08:44)
[2019-04-19] MEDS: Spironolactone 25 MG TAB PO SCH (08:45)
[2019-04-19] MEDS: Digoxin 0.125 MG TAB PO SCH (08:45)
[2019-04-19] MEDS: Sacubitril 24.5 MG/Valsartan 25.5 MG TABLET PO SCH ×2 (08:45→21:03)
[2019-04-19] MEDS: Folic Acid 1 MG TAB PO SCH (08:45)
[2019-04-19] MEDS: Thiamine 100 MG TAB PO SCH (08:45)
[2019-04-19] MEDS: Famotidine 20 MG TAB PO SCH ×2 (08:45→21:04)
[2019-04-19 11:08] LABS: #Eosinphils 0.1 thou/uL (0.0-0.7); #Lymphocytes 1.5 thou/uL (1.20-3.40); #Monocytes 0.7 thou/uL (0.11-0.59); #Neutrophils 4.1 thou/uL (1.40-6.50); %Basophils 0.3 % (0.0-1.0); %Eosinophils 1.8 % (0.0-10.0); %Lymphocytes 23.4 % (21.0-51.0); %Monocytes 10.8 % (0.0-10.0); %Neutrophils 63.7 % (42.0-75.0); Hemoglobin 12.7 g/dL (14.0-18.0); Mean Corpuscular HGB CONC 35.3 g/dL (32.0-36.0); Mean Corpuscular Hemoglobin 35.4 pg (27.0-31.0); Mean Platelet Volume 8.6 fL (7.4-10.4); Platelet Count 79 thou/uL (130-400); RBC Distribution Width 13.3 % (11.5-14.5); White Blood Cell (WBC) Count 6.5 thou/uL (4.8-10.8)
[2019-04-19 11:19] LABS: Anion Gap 16 mmol/L (10-20); BUN (Urea Nitrogen) 12 mg/dL (8.4-25.7); Calc. Creatinine Clearance 151 mL/min (70-130); Calcium 9.7 mg/dL (7.8-10.44); Carbon Dioxide 26 mmol/L (23-31); Chloride 99 mmol/L (98-107); Estimated GFR-MDRD 87; Glucose 115 mg/dL (80-115); Potassium 3.6 mmol/L (3.5-5.1); Sodium 137 mmol/L (136-145)
[2019-04-19 12:22] LABS: Digoxin 0.98 ng/mL (0.8-2.0)
[2019-04-19] MEDS: Magnesium 2 GM/50 ML 2 GM in Premix Bag 1 BAG IVPB SCH ×3 (12:29→18:33)
--- NOTE | 2019-04-19 12:39 | PDOC.EVN ---
Event Note - Event Note Event Note: i have personally reviewed case and discussed with CAD CAM PROGRAMMER, agreed with his physical finding and A & P
--- NOTE | 2019-04-19 13:03 | PDOC.EVN ---
Event Note - Event Note Event Note: I have personally seen and examined pt, assessment and plan discussed with TUBULAR SPLITTING MACHINE TENDER, agreed with note
--- NOTE | 2019-04-19 16:54 | PDOC.PN ---
- Subjective Encounter Start Date: 04/19/19 Encounter Start Time: 16:51 Patient lying in bed, he denies any events over night. He denies chest pain, shortness of breath or palpitations. Magnesium 1.0 this morning, replacement ordered, digoxin level normal. - Objective Resuscitation Status - Order Detail: 04/17/19 19:05 Resuscitation Status Routine Co-Sign Provider: Resuscitation Status: FULL: Full Resuscitation MAR Reviewed: Yes Vital Signs & Weight: Vital Signs (12 hours) Temp Pulse Resp BP BP BP BP 04/19/19 15:04 97.6 F 85 16 135/73 04/19/19 11:59 97.8 F 83 12 138/79 04/19/19 08:45 98 04/19/19 08:44 120/75 04/19/19 07:37 97.6 F 98 16 120/75 130/78 BP Pulse Ox 04/19/19 15:04 95 04/19/19 11:59 92 L 04/19/19 08:45 04/19/19 08:44 04/19/19 07:37 131/61 95 Weight Weight 290 lb 3.2 oz I&O: 04/18/19 04/19/19 04/20/19 06:59 06:59 06:59 Intake Total 766 1240 Output Total 325 875 Balance 441 365 Result Diagrams: 04/19/19 10:54 04/19/19 10:54 Radiology Reviewed by me: Yes EKG Reviewed by me: Yes Phys Exam - Physical Examination Constitutional: NAD HEENT: moist MMs, oral pharynx no lesions Neck: no nodes, supple Respiratory: no wheezing, clear to auscultation bilateral Cardiovascular: RRR, no significant murmur Gastrointestinal: soft, positive bowel sounds Musculoskeletal: no edema, pulses present Neurological: normal sensation, moves all 4 limbs Psychiatric: normal affect, A&O x 3 Skin: normal turgor, cap refill <2 seconds Dx/Plan (1) Pre-syncope Status: Acute (2) Acute on chronic systolic heart failure Code(s): I50.23 - ACUTE ON CHRONIC SYSTOLIC (CONGESTIVE) HEART FAILURE Status : Acute (3) Hypomagnesemia Code(s): E83.42 - HYPOMAGNESEMIA Status: Acute (4) Hypokalemia Code(s): E87.6 - HYPOKALEMIA Status: Acute Comment: Improved (5) Chronic a-fib Code(s): I48.2 - CHRONIC ATRIAL FIBRILLATION Status: Acute (6) ETOH abuse Code(s): F10.10 - ALCOHOL ABUSE, UNCOMPLICATED Status: Chronic (7) HLD (hyperlipidemia) Code(s): E78.5 - HYPERLIPIDEMIA, UNSPECIFIED Status: Chronic Qualifiers: Hyperlipidemia type: unspecified Qualified Code(s): E78.5 - Hyperlipidemia , unspecified (8) HTN (hypertension) Code(s): I10 - ESSENTIAL (PRIMARY) HYPERTENSION Status: Chronic Qualifiers: Hypertension type: essential hypertension Qualified Code(s): I10 - Essential (primary) hypertension (9) Hypothyroid Code(s): E03.9 - HYPOTHYROIDISM, UNSPECIFIED Status: Chronic Qualifiers: Hypothyroidism type: unspecified Qualified Code(s): E03.9 - Hypothyroidism , unspecified - Plan cont current plan of care * Continue magnesium replacement and recheck * Continue home medications, digoxin level normal * Await repeat echo per cardiology * Will discuss with case management for resources for disposition * Hold discharge for hypomagnesemia and awaiting echo, will discuss with case management about status
[2019-04-19] MEDS: Loratadine 10 MG TAB PO PRN (21:04)
[2019-04-19] MEDS: Simvastatin 20 MG TAB PO SCH (21:04)
--- NOTE | 2019-04-19 22:17 | PDOC.EVN ---
Event Note - Event Note Event Note: Notified patient is hallucinating. He is AO x 4. States he did not sleep at all last night. Had Mg replaced today, was 1.0. Will repeat CMP and Mg+, and replace further if necessary. He is afebrile. WCC today was normal. Will add lactate. Potentially this is due to sleep deprivation. No help with Melatonin. Will give Benadryl x 1 to help with sleep.
[2019-04-19] MEDS ORDERED: diphenhydrAMINE 50 MG/ML VIAL IVP SCH (22:30)
[2019-04-19 23:15] LABS: Lactic Acid 2.3 mmol/L (0.5-2.2)
[2019-04-19 23:20] LABS: ALT (SGPT) 22 U/L (8-55); AST (SGOT) 39 U/L (5-34); Albumin 4.3 g/dL (3.4-4.8); Alkaline Phosphatase 62 U/L (40-150); Anion Gap 13 mmol/L (10-20); BUN (Urea Nitrogen) 11 mg/dL (8.4-25.7); Bilirubin, Total 1.5 mg/dL (0.2-1.2); Calc. Creatinine Clearance 155 mL/min (70-130); Calcium 9.8 mg/dL (7.8-10.44); Carbon Dioxide 28 mmol/L (23-31); Chloride 97 mmol/L (98-107); Estimated GFR-MDRD 90; Globulin 2.5 g/dL (2.4-3.5); Glucose 128 mg/dL (80-115); Magnesium 1.9 mg/dL (1.6-2.6); Potassium 3.9 mmol/L (3.5-5.1); Protein, Total 6.8 g/dL (5.8-8.1); Sodium 134 mmol/L (136-145)
[2019-04-20 05:22] LABS: #Basophils 0.1 thou/uL (0.0-0.2); #Eosinphils 0.1 thou/uL (0.0-0.7); #Lymphocytes 1.2 thou/uL (1.20-3.40); #Monocytes 0.7 thou/uL (0.11-0.59); #Neutrophils 2.8 thou/uL (1.40-6.50); %Eosinophils 2.3 % (0.0-10.0); %Lymphocytes 25.8 % (21.0-51.0); %Monocytes 13.6 % (0.0-10.0); %Neutrophils 57.3 % (42.0-75.0); Hemoglobin 11.6 g/dL (14.0-18.0); Mean Corpuscular HGB CONC 34.2 g/dL (32.0-36.0); Mean Corpuscular Hemoglobin 34.6 pg (27.0-31.0); Mean Platelet Volume 8.8 fL (7.4-10.4); Platelet Count 69 thou/uL (130-400); RBC Distribution Width 13.3 % (11.5-14.5); Red Blood Cell (RBC) Count 3.34 mill/uL (4.70-6.10); White Blood Cell (WBC) Count 4.8 thou/uL (4.8-10.8)
[2019-04-20 05:32] LABS: Anion Gap 11 mmol/L (10-20); BUN (Urea Nitrogen) 9 mg/dL (8.4-25.7); Calc. Creatinine Clearance 176 mL/min (70-130); Calcium 9.1 mg/dL (7.8-10.44); Carbon Dioxide 29 mmol/L (23-31); Chloride 99 mmol/L (98-107); Estimated GFR-MDRD Greater than 90; Glucose 104 mg/dL (80-115); Potassium 3.2 mmol/L (3.5-5.1); Sodium 136 mmol/L (136-145)
[2019-04-20] MEDS: Sacubitril 24.5 MG/Valsartan 25.5 MG TABLET PO SCH ×3 (05:42→20:18)
[2019-04-20] MEDS: Levothyroxine Sodium 112 MCG TAB PO SCH (05:45)
[2019-04-20] MEDS: Folic Acid 1 MG TAB PO SCH (08:46)
[2019-04-20] MEDS: Carvedilol 6.25 MG TAB PO SCH ×2 (08:46→16:54)
[2019-04-20] MEDS: buPROPion HCl 100 MG TAB PO SCH (08:46)
[2019-04-20] MEDS: Famotidine 20 MG TAB PO SCH ×2 (08:46→20:18)
[2019-04-20] MEDS: Digoxin 0.125 MG TAB PO SCH (08:46)
[2019-04-20] MEDS: Apixaban 5 MG TAB PO SCH ×2 (08:46→20:18)
[2019-04-20] MEDS: Thiamine 100 MG TAB PO SCH (08:46)
[2019-04-20] MEDS: Aspirin 81 mg Enteric Coated Tablet PO SCH (08:47)
[2019-04-20] MEDS: Spironolactone 25 MG TAB PO SCH (08:47)
[2019-04-20] MEDS ORDERED: Potassium Chloride 20 MEQ TAB PO SCH (14:30)
--- NOTE | 2019-04-20 19:38 | PRG ---
DATE OF SERVICE: 04/20/2019 SUBJECTIVE: Mr. Franks is a 68-year-old male with past medical history significant for dilated cardiomyopathy status post BiV-ICD, chronic atrial fibrillation, and known history of alcohol abuse and hallucinations, who presented to the hospital with complaints of generalized weakness and presyncope when exiting his truck. The patient states that he does feel improved today. He had some problems with hallucinations overnight and inability to sleep. He denies any chest pain or shortness of breath. He has ambulated with PT. He denies any cough, fevers, or chills. OBJECTIVE: VITAL SIGNS: Blood pressure 108/68, pulse is 84, O2 saturation is 95% on room air, temperature 98.7. GENERAL: The patient is a mildly obese male, resting comfortably in bed, in no acute distress. HEENT: Head is atraumatic and normocephalic. Mucous membranes are moist. NECK: Supple. No lymphadenopathy. No carotid bruits. No JVD. CV: S1 and S2. Regular rhythm. No appreciable murmurs, rubs, or gallops. LUNGS: Regular respiratory rate and pattern. Clear to auscultation bilaterally. No crackles or rhonchi noted. ABDOMEN: Positive bowel sounds. Soft and nontender. EXTREMITIES: No appreciable edema, +2 DP pulses bilaterally. SKIN: Warm and dry. No rashes. Some mild ecchymosis noted on his forearm. NEUROLOGIC: Cranial nerves 2 through 12 are intact. The patient is alert and oriented at this time. The patient is nonfocal. LABORATORY DATA: Hemoglobin 11.6, hematocrit 33.8, white blood cell count 4.8, platelet count is 69. Sodium 136, potassium 3.2, chloride 99, carbon dioxide 29 , BUN is 9, creatinine 0.76. Digoxin level was 0.98 yesterday. ASSESSMENT: 1. Presyncope and generalized weakness on arrival, unclear etiology, improving, orthostatics negative. 2. Chronic atrial fibrillation, on Eliquis, CHADS-VASC is 3. 3. Alcohol abuse. 4. Electrolyte abnormalities including hypokalemia and hypomagnesemia. 5. Dilated cardiomyopathy with last EF estimated around 25%, status post BiV- ICD. 6. Thrombocytopenia. 7. Hallucinations overnight, ? secondary to insomnia vs EtOH withdrawal PLAN: We will continue to replete electrolytes as needed. We will replete potassium and recheck tomorrow. Regarding the patient's thrombocytopenia, we will continue to monitor and continue to monitor. The patient does have elevated CHADS-VASC score and will benefit from continued anticoagulation at this time. Continue PT and p.r.n. Ativan as well. The care of this patient has been discussed with Dr. Garcia, who agrees with care as outlined above. We are also awaiting echocardiogram which is pending. Job ID: [id number] MTDD
[2019-04-20] MEDS: Simvastatin 20 MG TAB PO SCH (20:18)
--- NOTE | 2019-04-20 21:44 | PDOC.EVN ---
Event Note - Event Note Event Note: Patient was seen and examined. Discussed with Inés Butler. VS reviewed. Appears to still be mildly encephalopathic/shaky. His is also admitted here. He says they are still relatively new to the area and don't have any close friends. His echo is pending at the time of my exam. Discussed with CM. He does not appear to prepared for self-care. Agree with the plan per Inés Butler's documentation.
[2019-04-21] MEDS: Levothyroxine Sodium 112 MCG TAB PO SCH (04:51)
[2019-04-21 05:01] LABS: #Eosinphils 0.2 thou/uL (0.0-0.7); #Lymphocytes 1.3 thou/uL (1.20-3.40); #Monocytes 0.7 thou/uL (0.11-0.59); #Neutrophils 2.6 thou/uL (1.40-6.50); %Basophils 0.4 % (0.0-1.0); %Eosinophils 3.4 % (0.0-10.0); %Monocytes 14.5 % (0.0-10.0); %Neutrophils 54.7 % (42.0-75.0); Hemoglobin 11.6 g/dL (14.0-18.0); Mean Corpuscular HGB CONC 33.9 g/dL (32.0-36.0); Mean Corpuscular Hemoglobin 34.7 pg (27.0-31.0); Mean Platelet Volume 8.9 fL (7.4-10.4); Platelet Count 78 thou/uL (130-400); RBC Distribution Width 13.5 % (11.5-14.5); Red Blood Cell (RBC) Count 3.35 mill/uL (4.70-6.10); White Blood Cell (WBC) Count 4.7 thou/uL (4.8-10.8)
[2019-04-21 05:16] LABS: Anion Gap 14 mmol/L (10-20); BUN (Urea Nitrogen) 9 mg/dL (8.4-25.7); Calc. Creatinine Clearance 171 mL/min (70-130); Calcium 9.3 mg/dL (7.8-10.44); Carbon Dioxide 26 mmol/L (23-31); Chloride 100 mmol/L (98-107); Estimated GFR-MDRD Greater than 90; Glucose 104 mg/dL (80-115); Potassium 3.3 mmol/L (3.5-5.1); Sodium 137 mmol/L (136-145)
[2019-04-21] MEDS: Aspirin 81 mg Enteric Coated Tablet PO SCH (09:12)
[2019-04-21] MEDS: Digoxin 0.125 MG TAB PO SCH (09:12)
[2019-04-21] MEDS: Famotidine 20 MG TAB PO SCH ×2 (09:12→20:43)
[2019-04-21] MEDS: buPROPion HCl 100 MG TAB PO SCH (09:12)
[2019-04-21] MEDS: Apixaban 5 MG TAB PO SCH ×2 (09:12→20:43)
[2019-04-21] MEDS: Carvedilol 6.25 MG TAB PO SCH ×2 (09:12→17:35)
[2019-04-21] MEDS: Spironolactone 25 MG TAB PO SCH (09:13)
[2019-04-21] MEDS: Sacubitril 24.5 MG/Valsartan 25.5 MG TABLET PO SCH ×2 (09:13→20:43)
[2019-04-21] MEDS: Folic Acid 1 MG TAB PO SCH (09:13)
[2019-04-21] MEDS: Thiamine 100 MG TAB PO SCH (09:14)
--- NOTE | 2019-04-21 13:57 | PDOC.PN ---
- Subjective Encounter Start Date: 04/21/19 Encounter Start Time: 13:55 Subjective: Admitted after a near syncope. -: Found to have hypokalemia and hypomagnesemia as well as lactic acidosis. -: Patient is a chronic alcohol user. Feeling better. - Objective Resuscitation Status - Order Detail: 04/17/19 19:05 Resuscitation Status Routine Co-Sign Provider: Resuscitation Status: FULL: Full Resuscitation Vital Signs & Weight: Vital Signs (12 hours) Temp Pulse Resp BP BP Pulse Ox 04/21/19 11:45 97.6 F 85 18 119/81 97 04/21/19 09:12 88 135/85 04/21/19 07:43 135/85 04/21/19 07:15 97.6 F 88 18 135/85 96 04/21/19 07:10 97 04/21/19 03:59 97.5 F L 86 18 135/83 135/83 95 Weight Weight 290 lb 6 oz I&O: 04/20/19 04/21/19 04/22/19 06:59 06:59 06:59 Intake Total 880 600 Output Total 500 Balance 380 600 Result Diagrams: 04/21/19 04:14 04/21/19 04:14 Phys Exam - Physical Examination Constitutional: NAD obese HEENT: PERRLA, moist MMs Neck: no JVD, supple Respiratory: no wheezing, no rales, no rhonchi, clear to auscultation bilateral Cardiovascular: no significant murmur Gastrointestinal: no distention, positive bowel sounds Musculoskeletal: no edema, pulses present Neurological: non-focal awake and conversational. Moving all limbs but with decrease power Psychiatric: A&O x 3 Dx/Plan (1) Pre-syncope Status: Acute (2) Chronic a-fib Code(s): I48.2 - CHRONIC ATRIAL FIBRILLATION Status: Acute (3) Encephalopathy acute Code(s): G93.40 - ENCEPHALOPATHY, UNSPECIFIED Status: Acute Comment: history previously. Secondary to ETOH abuse, supportive, Valium prn (4) Hypokalemia Code(s): E87.6 - HYPOKALEMIA Status: Acute Comment: Improved (5) Hypomagnesemia Code(s): E83.42 - HYPOMAGNESEMIA Status: Acute (6) Cardiomyopathy Code(s): I42.9 - CARDIOMYOPATHY, UNSPECIFIED Status: Chronic Qualifiers: Cardiomyopathy type: alcoholic Qualified Code(s): I42.6 - Alcoholic cardiomyopathy Comment: ef of around 25%, clinical decompensation, resume chronic meds (7) ETOH abuse Code(s): F10.10 - ALCOHOL ABUSE, UNCOMPLICATED Status: Chronic (8) GERD (gastroesophageal reflux disease) Code(s): K21.9 - GASTRO-ESOPHAGEAL REFLUX DISEASE WITHOUT ESOPHAGITIS Status: Chronic (9) HLD (hyperlipidemia) Code(s): E78.5 - HYPERLIPIDEMIA, UNSPECIFIED Status: Chronic Qualifiers: Hyperlipidemia type: unspecified Qualified Code(s): E78.5 - Hyperlipidemia , unspecified (10) HTN (hypertension) Code(s): I10 - ESSENTIAL (PRIMARY) HYPERTENSION Status: Chronic Qualifiers: Hypertension type: essential hypertension Qualified Code(s): I10 - Essential (primary) hypertension (11) Hypothyroid Code(s): E03.9 - HYPOTHYROIDISM, UNSPECIFIED Status: Chronic Qualifiers: Hypothyroidism type: unspecified Qualified Code(s): E03.9 - Hypothyroidism , unspecified (12) Hyponatremia Code(s): E87.1 - HYPO-OSMOLALITY AND HYPONATREMIA Status: Acute (13) Macrocytic anemia Code(s): D53.9 - NUTRITIONAL ANEMIA, UNSPECIFIED Status: Acute (14) Thrombocythemia Status: Acute - Plan Replete serum potassium. Recheck serum magnesium and replete as needed -: Awaiting repeat Echo -: Consult PT/OT for eval and treat. -: Start Vit b12 supplementation. * .
[2019-04-21] MEDS ORDERED: Potassium Chloride 20 MEQ TAB PO SCH ×3 (14:00→20:15)
[2019-04-21] MEDS: Simvastatin 20 MG TAB PO SCH (20:43)
[2019-04-21] MEDS: Potassium Chloride 20 MEQ TAB PO SCH (23:02)
[2019-04-22] MEDS: Levothyroxine Sodium 112 MCG TAB PO SCH (04:39)
[2019-04-22] MEDS ORDERED: Sodium Chloride 0.65% Nasal 44 ML BOT EA NARE PRN (06:08)
[2019-04-22] MEDS ORDERED: hydrALAZINE 20 MG/ML VIAL SLOW IVP PRN (06:08)
[2019-04-22] MEDS ORDERED: Loperamide HCl 2 MG CAP PO PRN (06:08)
[2019-04-22] MEDS ORDERED: Diabetic Tussin 200 MG/10 ML UDCUP PO PRN (06:08)
[2019-04-22] MEDS ORDERED: Calcium Carbonate 500 MG ChewTAB PO PRN (06:08)
[2019-04-22] MEDS ORDERED: Zolpidem Tartrate 5 MG TAB PO PRN (06:08)
[2019-04-22] MEDS ORDERED: Ondansetron ODT 4 MG TAB PO PRN (06:08)
[2019-04-22] MEDS ORDERED: HYDROcodone/Acetaminophen 5/325 mg Tablet PO PRN (06:08)
[2019-04-22] MEDS ORDERED: Senokot S 8.6-50 MG TAB PO PRN (06:08)
[2019-04-22] MEDS ORDERED: Cepastat Lozenges 1 LOZ PO PRN (06:08)
[2019-04-22] MEDS ORDERED: Bisacodyl 5 MG TAB PO PRN (06:08)
[2019-04-22] MEDS ORDERED: Ondansetron PF 4 MG/2 ML Vial IVP PRN (06:08)
[2019-04-22 07:13] LABS: Albumin 3.9 g/dL (3.4-4.8); Anion Gap 13 mmol/L (10-20); BUN (Urea Nitrogen) 7 mg/dL (8.4-25.7); BUN/Creatinine Ratio 8.33; Calc. Creatinine Clearance 157 mL/min (70-130); Calcium 9.8 mg/dL (7.8-10.44); Carbon Dioxide 26 mmol/L (23-31); Chloride 101 mmol/L (98-107); Estimated GFR-MDRD Greater than 90; Glucose 105 mg/dL (80-115); Magnesium 1.2 mg/dL (1.6-2.6); Phosphorus 2.4 mg/dL (2.3-4.7); Potassium 4.3 mmol/L (3.5-5.1); Sodium 136 mmol/L (136-145)
[2019-04-22] MEDS: Carvedilol 6.25 MG TAB PO SCH ×2 (08:59→18:33)
[2019-04-22] MEDS: Apixaban 5 MG TAB PO SCH ×3 (09:00→21:37)
[2019-04-22] MEDS: buPROPion HCl 100 MG TAB PO SCH (09:00)
[2019-04-22] MEDS: Aspirin 81 mg Enteric Coated Tablet PO SCH (09:00)
[2019-04-22] MEDS: Cyanocobalamin (Vitamin B-12) 1,000 MCG TAB PO SCH (09:00)
[2019-04-22] MEDS: Famotidine 20 MG TAB PO SCH ×2 (09:01→21:37)
[2019-04-22] MEDS: Digoxin 0.125 MG TAB PO SCH (09:01)
[2019-04-22] MEDS: Sacubitril 24.5 MG/Valsartan 25.5 MG TABLET PO SCH ×2 (09:01→21:37)
[2019-04-22] MEDS: Thiamine 100 MG TAB PO SCH (09:01)
[2019-04-22] MEDS: Folic Acid 1 MG TAB PO SCH (09:01)
[2019-04-22] MEDS: Spironolactone 25 MG TAB PO SCH (09:02)
[2019-04-22] MEDS ORDERED: Magnesium Sulfate 4 GM in Sodium Chloride 0.9% 250 ML 250 ML IVPB SCH (13:00)
--- NOTE | 2019-04-22 13:51 | PDOC.PN ---
- Subjective Encounter Start Date: 04/22/19 Encounter Start Time: 07:15 -: old records requested/rev Patient seen and examined. No new complaints. No overnight events - Objective Resuscitation Status - Order Detail: 04/17/19 19:05 Resuscitation Status Routine Co-Sign Provider: Resuscitation Status: FULL: Full Resuscitation MAR Reviewed: Yes Vital Signs & Weight: Vital Signs (12 hours) Temp Pulse Resp BP BP Pulse Ox 04/22/19 12:40 97.8 F 82 17 121/76 97 04/22/19 09:01 84 04/22/19 08:59 136/87 04/22/19 08:53 97.9 F 82 17 136/87 136/87 96 04/22/19 04:00 138/90 04/22/19 03:40 97.7 F 96 16 138/90 95 Weight Weight 291 lb 9 oz I&O: 04/21/19 04/22/19 04/23/19 06:59 06:59 06:59 Intake Total 600 1200 Balance 600 1200 Result Diagrams: 04/21/19 04:14 04/22/19 06:27 EKG Reviewed by me: Yes (pacing) Phys Exam - Physical Examination Constitutional: NAD HEENT: PERRLA, moist MMs, sclera anicteric Neck: no JVD, supple Respiratory: no wheezing, no rales, no rhonchi Cardiovascular: RRR, no significant murmur, no rub Gastrointestinal: soft, non-tender, no distention, positive bowel sounds obesity+ Musculoskeletal: no edema, pulses present Neurological: non-focal, normal sensation, moves all 4 limbs Lymphatic: no nodes Psychiatric: normal affect, A&O x 3 Skin: no rash, normal turgor Dx/Plan (1) Acute metabolic encephalopathy Code(s): G93.41 - METABOLIC ENCEPHALOPATHY Status: Resolved (2) Hypokalemia Code(s): E87.6 - HYPOKALEMIA Status: Resolved Comment: (3) Hypomagnesemia Code(s): E83.42 - HYPOMAGNESEMIA Status: Acute (4) Hyponatremia Code(s): E87.1 - HYPO-OSMOLALITY AND HYPONATREMIA Status: Resolved (5) Pre-syncope Status: Acute (6) Thrombocythemia Status: Chronic (7) Chronic a-fib Code(s): I48.2 - CHRONIC ATRIAL FIBRILLATION Status: Chronic (8) ETOH abuse Code(s): F10.10 - ALCOHOL ABUSE, UNCOMPLICATED Status: Chronic (9) GERD (gastroesophageal reflux disease) Code(s): K21.9 - GASTRO-ESOPHAGEAL REFLUX DISEASE WITHOUT ESOPHAGITIS Status: Chronic (10) HLD (hyperlipidemia) Code(s): E78.5 - HYPERLIPIDEMIA, UNSPECIFIED Status: Chronic Qualifiers: Hyperlipidemia type: unspecified Qualified Code(s): E78.5 - Hyperlipidemia , unspecified (11) HTN (hypertension) Code(s): I10 - ESSENTIAL (PRIMARY) HYPERTENSION Status: Chronic Qualifiers: Hypertension type: essential hypertension Qualified Code(s): I10 - Essential (primary) hypertension (12) Hypothyroidism Code(s): E03.9 - HYPOTHYROIDISM, UNSPECIFIED Status: Chronic (13) Macrocytic anemia Code(s): D53.9 - NUTRITIONAL ANEMIA, UNSPECIFIED Status: Chronic (14) Morbid obesity with BMI of 40.0-44.9, adult Code(s): E66.01 - MORBID (SEVERE) OBESITY DUE TO EXCESS CALORIES; Z68.41 - BODY MASS INDEX (BMI) 40.0-44.9, ADULT Status: Chronic (15) Nonischemic cardiomyopathy Code(s): I42.8 - OTHER CARDIOMYOPATHIES Status: Chronic Comment: EF 25%, declining LifeVest, change Lasix 40mg IV TID (16) Osteoarthritis of knee Code(s): M17.9 - OSTEOARTHRITIS OF KNEE, UNSPECIFIED Status: Chronic - Plan cont current plan of care, PT/OT * pt is agreed to continue elliquis * I have advised him to quit alcohol and fall precaution discussed * he is at risk for CVA and OK to continue elliquis and risk and benefit discussed with pt * replace magnesium * expecting discharge tomorrow * medication reviewed as below * symptomatic treatment. * echo result pending Review of Systems - Review of Systems ENT: negative: Ear Pain, Ear Discharge, Nose Pain, Nose Discharge, Nose Congestion, Mouth Pain, Mouth Swelling, Throat Pain, Throat Swelling, Other Respiratory: negative: Cough, Dry, Shortness of Breath, Hemoptysis, SOB with Excertion, Pleuritic Pain, Sputum, Wheezing Cardiovascular: negative: chest pain, palpitations, orthopnea, paroxysmal nocturnal dyspnea, edema, light headedness, other Gastrointestinal: negative: Nausea, Vomiting, Abdominal Pain, Diarrhea, Constipation, Melena, Hematochezia, Other Genitourinary: negative: Dysuria, Frequency, Incontinence, Hematuria, Retention , Other Musculoskeletal: negative: Neck Pain, Shoulder Pain, Arm Pain, Back Pain, Hand Pain, Leg Pain, Foot Pain, Other - Medications/Allergies Allergies/Adverse Reactions: Allergies Allergy/AdvReac Type Severity Reaction Status Date / Time No Known Allergies Allergy Verified 04/17/19 19:44 Medications: Current Medications Hydrocodone Bitart/Acetaminophen ([place] 5/325) 1 tab PO Q4H PRN PRN Reason: Moderate Pain (4-6) Apixaban (Eliquis) 5 mg PO BID [facility] Last Admin: 04/22/19 10:44 Dose: 5 mg Aspirin (Ecotrin) 81 mg PO DAILY [facility] Last Admin: 04/22/19 09:00 Dose: 81 mg Bisacodyl (Dulcolax) 10 mg PO DAILYPRN PRN PRN Reason: Constipation Bupropion HCl (Wellbutrin) 100 mg PO DAILY [facility] Last Admin: 04/22/19 09:00 Dose: 100 mg Calcium Carbonate (Tums) 1,000 mg PO Q4H PRN PRN Reason: Heartburn or Indigestion Carvedilol (Coreg) 6.25 mg PO BID-[facility] Last Admin: 04/22/19 08:59 Dose: 6.25 mg Cyanocobalamin (Vitamin B-12) 1,000 mcg PO DAILY [facility] Last Admin: 04/22/19 09:00 Dose: 1,000 mcg Digoxin (Lanoxin) 0.125 mg PO DAILY [facility] Last Admin: 04/22/19 09:01 Dose: 0.125 mg Famotidine (Pepcid) 20 mg PO Q12HR [facility] Last Admin: 04/22/19 09:01 Dose: 20 mg Folic Acid (Folvite) 1 mg PO DAILY [facility] Last Admin: 04/22/19 09:01 Dose: 1 mg Guaifenesin (Robitussin Sf) 200 mg PO Q4H PRN PRN Reason: Cough Hydralazine HCl (Apresoline) 10 mg SLOW IVP Q4H PRN PRN Reason: SBP > 180 and HR < 70 Magnesium Sulfate 4 gm/ Sodium (Chloride) 258 mls @ 86 mls/hr IVPB 1300 [facility] Stop: 04/22/19 16:00 Last Admin: 04/22/19 12:41 Dose: 258 mls Levothyroxine Sodium (Synthroid) 112 mcg PO 0600 [facility] Last Admin: 04/22/19 04:39 Dose: 112 mcg Loperamide HCl (Imodium) 2 mg PO PRN PRN PRN Reason: Diarrhea/Loose Stools Loratadine (Claritin) 10 mg PO DAILYPRN PRN PRN Reason: Allergies Last Admin: 04/19/19 21:04 Dose: 10 mg Lorazepam (Ativan) 0.5 mg PO Q4H PRN PRN Reason: Anxiety Last Admin: 04/19/19 21:04 Dose: 0.5 mg Ondansetron HCl (Zofran Odt) 4 mg PO Q6H PRN PRN Reason: Nausea/Vomiting Ondansetron HCl (Zofran) 4 mg IVP Q6H PRN PRN Reason: Nausea/Vomiting Potassium Chloride (K-Dur) 40 meq PO 2300 [facility] Last Admin: 04/21/19 23:02 Dose: 40 meq Propylene Glycol (Systane Opth Drop 15ml Bot) 2 drop EA EYE Q4H PRN PRN Reason: Dry Eyes Last Admin: 04/19/19 05:37 Dose: 2 drop Sacubitril/Valsartan (Entresto 24.5 Mg-25.5 Mg Tablet) 1 tab PO BID [facility] Last Admin: 04/22/19 09:01 Dose: 1 tab Senna/Docusate Sodium (Senokot S) 2 tab PO BID PRN PRN Reason: Constipation Simvastatin (Zocor) 20 mg PO HS [facility] Last Admin: 04/21/19 20:43 Dose: 20 mg Sodium Chloride (Flush - Normal Saline) 10 ml IVF Q12HR [facility] Last Admin: 04/22/19 09:03 Dose: 10 ml Sodium Chloride (Flush - Normal Saline) 10 ml IVF PRN PRN PRN Reason: Saline Flush Sodium Chloride ([place] Nasal [place] 0.65%) 0 ml EA NARE QIDPRN PRN PRN Reason: Nasal Congestion Spironolactone (Aldactone) 12.5 mg PO DAILY [facility] Last Admin: 04/22/19 09:02 Dose: 12.5 mg Thiamine HCl (Thiamine) 100 mg PO DAILY [facility] Last Admin: 04/22/19 09:01 Dose: 100 mg Throat Lozenges (Cepastat Lozenges) 1 julio PO Q2H PRN PRN Reason: Sore Throat Zolpidem Tartrate (Ambien) 5 mg PO HSPRN PRN PRN Reason: Insomnia
[2019-04-22] MEDS: Simvastatin 20 MG TAB PO SCH (21:37)
[2019-04-23] MEDS: Potassium Chloride 20 MEQ TAB PO SCH (00:34)
[2019-04-23] MEDS: Levothyroxine Sodium 112 MCG TAB PO SCH (05:34)
[2019-04-23] MEDS: Digoxin 0.125 MG TAB PO SCH (08:44)
[2019-04-23] MEDS: Aspirin 81 mg Enteric Coated Tablet PO SCH (08:44)
[2019-04-23] MEDS: Sacubitril 24.5 MG/Valsartan 25.5 MG TABLET PO SCH (08:44)
[2019-04-23] MEDS: buPROPion HCl 100 MG TAB PO SCH (08:44)
[2019-04-23] MEDS: Famotidine 20 MG TAB PO SCH (08:44)
[2019-04-23] MEDS: Apixaban 5 MG TAB PO SCH (08:44)
[2019-04-23] MEDS: Thiamine 100 MG TAB PO SCH (08:45)
[2019-04-23] MEDS: Carvedilol 6.25 MG TAB PO SCH (08:45)
[2019-04-23] MEDS: Spironolactone 25 MG TAB PO SCH (08:45)
[2019-04-23] MEDS: Folic Acid 1 MG TAB PO SCH (08:45)
[2019-04-23] MEDS: Cyanocobalamin (Vitamin B-12) 1,000 MCG TAB PO SCH (08:46)
[2019-04-23] MEDS ORDERED: Magnesium Oxide 400 MG TAB PO SCH (09:00)
--- NOTE | 2019-04-23 11:27 | PDOC.PN ---
- Subjective Encounter Start Date: 04/23/19 Encounter Start Time: 07:20 Patient seen and examined. No new complaints. No overnight events - Objective Resuscitation Status - Order Detail: 04/17/19 19:05 Resuscitation Status Routine Co-Sign Provider: Resuscitation Status: FULL: Full Resuscitation MAR Reviewed: Yes Vital Signs & Weight: Vital Signs (12 hours) Temp Pulse Resp BP Pulse Ox 04/23/19 08:44 86 04/23/19 08:00 97.8 F 85 20 149/85 H 96 04/23/19 02:58 97.5 F L 86 17 138/84 97 Weight Weight 289 lb 14.4 oz I&O: 04/22/19 04/23/19 04/24/19 06:59 06:59 06:59 Intake Total 1200 300 Balance 1200 300 Result Diagrams: 04/21/19 04:14 04/22/19 06:27 EKG Reviewed by me: Yes Phys Exam - Physical Examination Constitutional: NAD HEENT: PERRLA, moist MMs, sclera anicteric Neck: no JVD, supple Respiratory: no wheezing, no rales, no rhonchi Cardiovascular: no significant murmur, no rub Gastrointestinal: soft, non-tender, no distention, positive bowel sounds Musculoskeletal: no edema, pulses present Neurological: non-focal, normal sensation, moves all 4 limbs Psychiatric: normal affect, A&O x 3 Skin: no rash, normal turgor Dx/Plan (1) Acute metabolic encephalopathy Code(s): G93.41 - METABOLIC ENCEPHALOPATHY Status: Resolved (2) Hypokalemia Code(s): E87.6 - HYPOKALEMIA Status: Resolved Comment: (3) Hypomagnesemia Code(s): E83.42 - HYPOMAGNESEMIA Status: Acute (4) Hyponatremia Code(s): E87.1 - HYPO-OSMOLALITY AND HYPONATREMIA Status: Resolved (5) Pre-syncope Status: Acute (6) Thrombocythemia Status: Chronic (7) Chronic a-fib Code(s): I48.2 - CHRONIC ATRIAL FIBRILLATION Status: Chronic (8) ETOH abuse Code(s): F10.10 - ALCOHOL ABUSE, UNCOMPLICATED Status: Chronic (9) GERD (gastroesophageal reflux disease) Code(s): K21.9 - GASTRO-ESOPHAGEAL REFLUX DISEASE WITHOUT ESOPHAGITIS Status: Chronic (10) HLD (hyperlipidemia) Code(s): E78.5 - HYPERLIPIDEMIA, UNSPECIFIED Status: Chronic Qualifiers: Hyperlipidemia type: unspecified Qualified Code(s): E78.5 - Hyperlipidemia , unspecified (11) HTN (hypertension) Code(s): I10 - ESSENTIAL (PRIMARY) HYPERTENSION Status: Chronic Qualifiers: Hypertension type: essential hypertension Qualified Code(s): I10 - Essential (primary) hypertension (12) Hypothyroidism Code(s): E03.9 - HYPOTHYROIDISM, UNSPECIFIED Status: Chronic (13) Macrocytic anemia Code(s): D53.9 - NUTRITIONAL ANEMIA, UNSPECIFIED Status: Chronic (14) Morbid obesity with BMI of 40.0-44.9, adult Code(s): E66.01 - MORBID (SEVERE) OBESITY DUE TO EXCESS CALORIES; Z68.41 - BODY MASS INDEX (BMI) 40.0-44.9, ADULT Status: Chronic (15) Nonischemic cardiomyopathy Code(s): I42.8 - OTHER CARDIOMYOPATHIES Status: Chronic Comment: EF 25%, declining LifeVest, change Lasix 40mg IV TID (16) Osteoarthritis of knee Code(s): M17.9 - OSTEOARTHRITIS OF KNEE, UNSPECIFIED Status: Chronic - Plan cont current plan of care * medication reviewed as below * symptomatic treatment * see discharge nora. Review of Systems - Review of Systems ENT: negative: Ear Pain, Ear Discharge, Nose Pain, Nose Discharge, Nose Congestion, Mouth Pain, Mouth Swelling, Throat Pain, Throat Swelling, Other Respiratory: negative: Cough, Dry, Shortness of Breath, Hemoptysis, SOB with Excertion, Pleuritic Pain, Sputum, Wheezing Cardiovascular: negative: chest pain, palpitations, orthopnea, paroxysmal nocturnal dyspnea, edema, light headedness, other Gastrointestinal: negative: Nausea, Vomiting, Abdominal Pain, Diarrhea, Constipation, Melena, Hematochezia, Other Genitourinary: negative: Dysuria, Frequency, Incontinence, Hematuria, Retention , Other Musculoskeletal: negative: Neck Pain, Shoulder Pain, Arm Pain, Back Pain, Hand Pain, Leg Pain, Foot Pain, Other - Medications/Allergies Allergies/Adverse Reactions: Allergies Allergy/AdvReac Type Severity Reaction Status Date / Time No Known Allergies Allergy Verified 04/17/19 19:44 Medications: Current Medications Hydrocodone Bitart/Acetaminophen ([place] 5/325) 1 tab PO Q4H PRN PRN Reason: Moderate Pain (4-6) Apixaban (Eliquis) 5 mg PO BID [facility] Last Admin: 04/23/19 08:44 Dose: 5 mg Aspirin (Ecotrin) 81 mg PO DAILY [facility] Last Admin: 04/23/19 08:44 Dose: 81 mg Bisacodyl (Dulcolax) 10 mg PO DAILYPRN PRN PRN Reason: Constipation Bupropion HCl (Wellbutrin) 100 mg PO DAILY [facility] Last Admin: 04/23/19 08:44 Dose: 100 mg Calcium Carbonate (Tums) 1,000 mg PO Q4H PRN PRN Reason: Heartburn or Indigestion Carvedilol (Coreg) 6.25 mg PO BID[facility] Last Admin: 04/23/19 08:45 Dose: 6.25 mg Cyanocobalamin (Vitamin B-12) 1,000 mcg PO DAILY [facility] Last Admin: 04/23/19 08:46 Dose: 1,000 mcg Digoxin (Lanoxin) 0.125 mg PO DAILY [facility] Last Admin: 04/23/19 08:44 Dose: 0.125 mg Famotidine (Pepcid) 20 mg PO Q12HR [facility] Last Admin: 04/23/19 08:44 Dose: 20 mg Folic Acid (Folvite) 1 mg PO DAILY [facility] Last Admin: 04/23/19 08:45 Dose: 1 mg Guaifenesin (Robitussin Sf) 200 mg PO Q4H PRN PRN Reason: Cough Hydralazine HCl (Apresoline) 10 mg SLOW IVP Q4H PRN PRN Reason: SBP > 180 and HR < 70 Levothyroxine Sodium (Synthroid) 112 mcg PO 0600 [facility] Last Admin: 04/23/19 05:34 Dose: 112 mcg Loperamide HCl (Imodium) 2 mg PO PRN PRN PRN Reason: Diarrhea/Loose Stools Loratadine (Claritin) 10 mg PO DAILYPRN PRN PRN Reason: Allergies Last Admin: 04/19/19 21:04 Dose: 10 mg Lorazepam (Ativan) 0.5 mg PO Q4H PRN PRN Reason: Anxiety Last Admin: 04/19/19 21:04 Dose: 0.5 mg Magnesium Oxide (Magnesium Oxide) 400 mg PO DAILY [facility] Last Admin: 04/23/19 08:45 Dose: 400 mg Ondansetron HCl (Zofran Odt) 4 mg PO Q6H PRN PRN Reason: Nausea/Vomiting Ondansetron HCl (Zofran) 4 mg IVP Q6H PRN PRN Reason: Nausea/Vomiting Potassium Chloride (K-Dur) 40 meq PO 2300 [facility] Last Admin: 04/23/19 00:34 Dose: 40 meq Propylene Glycol (Systane Opth Drop 15ml Bot) 2 drop EA EYE Q4H PRN PRN Reason: Dry Eyes Last Admin: 04/19/19 05:37 Dose: 2 drop Sacubitril/Valsartan (Entresto 24.5 Mg-25.5 Mg Tablet) 1 tab PO BID [facility] Last Admin: 04/23/19 08:44 Dose: 1 tab Senna/Docusate Sodium (Senokot S) 2 tab PO BID PRN PRN Reason: Constipation Simvastatin (Zocor) 20 mg PO HS [facility] Last Admin: 04/22/19 21:37 Dose: 20 mg Sodium Chloride (Flush - Normal Saline) 10 ml IVF Q12HR [facility] Last Admin: 04/23/19 08:46 Dose: 10 ml Sodium Chloride (Flush - Normal Saline) 10 ml IVF PRN PRN PRN Reason: Saline Flush Sodium Chloride ([place] Nasal [place] 0.65%) 0 ml EA NARE QIDPRN PRN PRN Reason: Nasal Congestion Spironolactone (Aldactone) 12.5 mg PO DAILY [facility] Last Admin: 04/23/19 08:45 Dose: 12.5 mg Thiamine HCl (Thiamine) 100 mg PO DAILY [facility] Last Admin: 04/23/19 08:45 Dose: 100 mg Throat Lozenges (Cepastat Lozenges) 1 julio PO Q2H PRN PRN Reason: Sore Throat Zolpidem Tartrate (Ambien) 5 mg PO HSPRN PRN PRN Reason: Insomnia Last Admin: 04/23/19 00:35 Dose: 5 mg
--- NOTE | 2019-04-23 12:36 | DIS ---
DATE OF ADMISSION: 04/17/2019 DATE OF DISCHARGE: 04/23/2019 PRIMARY CARE PHYSICIAN: Dr. Webb. DISCHARGE DISPOSITION: Home. PRIMARY DISCHARGE DIAGNOSES: 1. Presyncope. 2. Hypomagnesemia. 3. Acute metabolic encephalopathy. 4. Hypokalemia. 5. Hyponatremia. SECONDARY DISCHARGE DIAGNOSES: Chronic atrial fibrillation, alcohol abuse, gastroesophageal reflux disease, hypertension, dyslipidemia, macrocytic anemia, morbid obesity with BMI 41, nonischemic cardiomyopathy, osteoarthritis, thrombocytopenia, hypothyroidism, anxiety, and depression. PRIMARY PROCEDURE/OPERATION: None. RADIOLOGICAL INVESTIGATION: Chest x-ray, echocardiography. SIGNIFICANT LABORATORY DATA: WBC 4.7, hemoglobin 11.6, platelets 78. Sodium 136, creatinine 0.84, magnesium 1.8. Urine drug screen negative. DISCHARGE MEDICATIONS: 1. Eliquis 5 mg p.o. b.i.d. 2. Aspirin 81 mg daily. 3. Bupropion ER 100 mg daily. 4. Coreg 6.25 mg b.i.d. 5. Digoxin 0.125 mg p.o. daily. 6. Colace 100 mg daily. 7. Flonase nasal spray daily. 8. Folic acid 1 mg daily. 9. Synthroid 112 mcg p.o. daily. 10. Potassium chloride 20 mEq p.o. daily. 11. Entresto one tablet b.i.d. 12. Zocor 20 mg p.o. q.h.s. 13. Aldactone 12.5 mg daily. 14. Thiamine 100 mg p.o. daily. 15. Magnesium oxide 400 mg p.o. daily. CONTRAINDICATION: None. CODE STATUS: Full code. [employer]IENT [employer]: None. ALLERGIES: NO KNOWN DRUG ALLERGIES. DISCHARGE PLAN: Posthospital, the patient will follow up with primary care physician, cardiac rehab as well as Dr. Gonzalez on June 09, 2019 at 11:00 a.m. HOSPITAL COURSE: A 68-year-old male with above-mentioned medical problem, who was admitted by Arlyn Godfrey. Please see her H and P for further details. The patient was admitted for near-syncopal episode on admission. His symptoms were not explained. We ruled out orthostatic hypotension. He has pacemaker in and monitor was unremarkable. While in hospital, we noted that he had significant electrolyte disturbance with hypokalemia, hypomagnesemia, and hyponatremia that was corrected while in the hospital. We have provided the patient education about avoidance of alcohol abuse. The patient was also given patient education about continuing anticoagulation therapy with Eliquis. Risk and benefit were discussed. The patient expressed his wish that he will not drink alcohol anymore and he wanted to continue Eliquis therapy. The patient is medically stable for discharge. He will continue cardiac rehab as an outpatient basis and follow up with primary care physician and Cardiology as instructed. Please see discharge medication list. I have seen and examined the patient at bedside today. Please see my progress note from today for further detail. Job ID: [id number]
[2019-04-23 13:07] VITALS: BP 142/84; TEMP 97.7
== END 2019-04-23 13:59 | disposition home or self-care (01) | DRG 640 ==
LOC: ERS 15:41 → OBSVTOIN 16:45 → 2SW 16:45 → 2NO 04-19 20:20
PROVIDERS: ADMIT Internal Medicine; ATTEND Internal Medicine
DX: E83.42 Hypomagnesemia (principal); G93.41 Metabolic encephalopathy; E87.1 Hypo-osmolality and hyponatremia; Z68.41 Body mass index [BMI] 40.0-44.9, adult; I50.22 Chronic systolic (congestive) heart failure; I42.0 Dilated cardiomyopathy; R44.3 Hallucinations, unspecified; E87.6 Hypokalemia; I48.2 Chronic atrial fibrillation; K21.9 Gastro-esophageal reflux disease without esophagitis; E78.5 Hyperlipidemia, unspecified; D64.9 Anemia, unspecified; E66.01 Morbid (severe) obesity due to excess calories; I11.0 Hypertensive heart disease with heart failure; M17.9 Osteoarthritis of knee, unspecified; D69.6 Thrombocytopenia, unspecified; F10.20 Alcohol dependence, uncomplicated; E03.9 Hypothyroidism, unspecified; F32.9 Major depressive disorder, single episode, unspecified; F41.9 Anxiety disorder, unspecified; Z90.49 Acquired absence of other specified parts of digestive tract; Z95.0 Presence of cardiac pacemaker; Z79.899 Other long term (current) drug therapy; Z79.01 Long term (current) use of anticoagulants
CPT/HCPCS: 36415; 71045; 80048; 80069; 80162; 80306; 80307; 82140; 82565; 82805; 83605; 83690; 83735; 85014; 85018; 85025; 85049; 93306; 99285; J1200; J3475; J7050

== ENCOUNTER 2022-05-16 13:00 | Emergency (ER) | payer MEDICARE, OTHER | END 2022-05-16 13:39 | disposition left against medical advice (07) | LOC: ERS 13:00 | DX: H54.7 Unspecified visual loss (principal); R29.701 NIHSS score 1; I11.0 Hypertensive heart disease with heart failure; I50.9 Heart failure, unspecified; I48.91 Unspecified atrial fibrillation; K21.9 Gastro-esophageal reflux disease without esophagitis; E03.9 Hypothyroidism, unspecified; D64.9 Anemia, unspecified; E78.5 Hyperlipidemia, unspecified; F10.27 Alcohol dependence with alcohol-induced persisting dementia; I42.9 Cardiomyopathy, unspecified | CPT/HCPCS: 99284 ==

== ENCOUNTER 2022-10-24 14:00 | Inpatient (IN) | payer MEDICARE, OTHER ==
[2022-10-24 15:36] LABS: Bilirubin Neg (Negative); Blood, Urine Negative (Negative); Clarity Clear (Clear); Glucose, Urine (Dipstick) Normal (Negative); Ketone, Urine Negative (Negative); Leukocyte Negative (Negative); Nitrite Negative (Negative); Protein, Urine (Dipstick) Negative (Neg-Trace); Urobilinogen Normal mg/dL (Less than 2)
[2022-10-24 15:41] LABS: Hemoglobin 15.2 g/dL (13.5-17.5); Mean Corpuscular HGB CONC 34.6 g/dL (32.0-36.0); Mean Corpuscular Hemoglobin 34.4 pg (27.0-33.0); Mean Corpuscular Volume 99.3 fl (81.2-95.1); Mean Platelet Volume 12.2 fl (7.4-10.4); Platelet Count 112 10x3/uL (150-450); RBC Distribution Width 13.7 % (11.5-14.5); Red Blood Cell (RBC) Count 4.42 10x6/uL (4.32-5.72); White Blood Cell (WBC) Count 3.8 10x3/uL (3.5-10.5)
[2022-10-24 15:58] LABS: INR-International Normal Ratio 1.2; PTT 30.4 sec (22.0-33.0); Prothrombin Time 13.2 sec (9.5-12.1)
[2022-10-24 16:02] LABS: ALT (SGPT) 23 U/L (8-55); AST (SGOT) 45 U/L (5-34); Albumin 4.1 g/dL (3.4-4.8); Alkaline Phosphatase 98 U/L (40-110); Anion Gap 17 mmol/L (10-20); BUN (Urea Nitrogen) 7 mg/dL (8.4-25.7); Bilirubin, Total 1.5 mg/dL (0.2-1.2); Calc. Creatinine Clearance 0 mL/min (70-130); Calcium 9.6 mg/dL (7.8-10.44); Carbon Dioxide 29 mmol/L (23-31); Chloride 101 mmol/L (98-107); Estimated GFR 90; Globulin 2.9 g/dL (2.4-3.5); Glucose 97 mg/dL (83-110); Potassium 3.6 mmol/L (3.5-5.1); Sodium 143 mmol/L (136-145)
[2022-10-30 11:06] VITALS: BMI 34.4
[2022-10-31] MEDS ORDERED: Heparin 10,000 UNITS/ 10 ML VIAL ONE (06:33)
[2022-10-31] MEDS ORDERED: Protamine Sulfate 50 MG/5 ML VIAL ONE (06:33)
[2022-10-31] MEDS ORDERED: CEFAZOLIN 1 GM VIAL ONE ×2 (06:33→06:34)
[2022-10-31] MEDS ORDERED: Heparin 25,000 units/D5W 0 ML ONE (06:33)
[2022-10-31] MEDS ORDERED: FENTANYL 50 MCG/ML 1 ML VIAL ONE (06:55)
[2022-10-31] MEDS ORDERED: Norepinephrine 4 MG/4 ML VIAL ONE (07:09)
[2022-10-31] MEDS ORDERED: Ondansetron PF 4 MG/2 ML Vial ONE (07:50)
[2022-10-31] MEDS ORDERED: PROPOFOL 200 MG/20 ML VIAL ONE (07:50)
[2022-10-31] MEDS ORDERED: Rocuronium Bromide 10 MG/ML (10ML VIAL) ONE (07:50)
[2022-10-31] MEDS ORDERED: SUGAMMADEX SODIUM 200 MG/2 ML VIAL ONE (08:21)
== END 2022-10-31 10:11 | disposition home or self-care (01) | DRG 309 ==
LOC: EDSTATUS 14:00 → SURG A 10-31 06:00
PROVIDERS: ADMIT Internal Medicine Cardiovascular Disease; ATTEND Internal Medicine Cardiovascular Disease
PROC: B245ZZ4 Ultrasonography of Left Heart, Transesophageal (ICD-10-PCS; principal; 2022-10-31)
DX: I48.19 Other persistent atrial fibrillation (principal); Z53.8 Procedure and treatment not carried out for other reasons; I50.22 Chronic systolic (congestive) heart failure; Z68.1 Body mass index [BMI] 19.9 or less, adult; I51.3 Intracardiac thrombosis, not elsewhere classified; I42.8 Other cardiomyopathies; I44.7 Left bundle-branch block, unspecified; F17.210 Nicotine dependence, cigarettes, uncomplicated; E78.5 Hyperlipidemia, unspecified; E66.01 Morbid (severe) obesity due to excess calories; E03.9 Hypothyroidism, unspecified; K74.60 Unspecified cirrhosis of liver; I48.11 Longstanding persistent atrial fibrillation; I11.0 Hypertensive heart disease with heart failure; I42.0 Dilated cardiomyopathy; Z95.810 Presence of automatic (implantable) cardiac defibrillator; Z79.899 Other long term (current) drug therapy; Z79.82 Long term (current) use of aspirin; Z79.01 Long term (current) use of anticoagulants
CPT/HCPCS: 80053; 81003; 85027; 85610; 85730; 86850; 86900; 86901; 93312; J0690; J1644; J2720; J3010

== ENCOUNTER 2023-08-19 21:30 | Inpatient (IN) | payer MEDICARE, BC ==
[2023-08-19 22:27] LABS: #Eosinphils 0.1 thou/uL (0.0-0.7); %Basophils 0.4 % (0.0-1.0); %Eosinophils 1.7 % (0.0-10.0); %Lymphocytes 12.5 % (21.0-51.0); %Monocytes 11.9 % (0.0-10.0); %Neutrophils 72.8 % (42.0-75.0); Hematocrit 30.5 % (42.0-52.0); Hemoglobin 9.9 g/dL (14.0-18.0); Mean Corpuscular HGB CONC 32.5 g/dL (32.0-36.0); Mean Corpuscular Hemoglobin 32.2 pg (27.0-31.0); Mean Corpuscular Volume 99.3 fl (78.0-98.0); Mean Platelet Volume 11.4 fL (7.4-10.4); Platelet Count 283 10x3/uL (130-400); Red Blood Cell (RBC) Count 3.07 mill/uL (4.70-6.10); White Blood Cell (WBC) Count 8.2 10x3/uL (4.8-10.8)
[2023-08-19 23:00] LABS: Troponin I Less than 0.010 ng/mL (< 0.028)
[2023-08-19 23:16] LABS: ALT (SGPT) 19 U/L (8-55); AST (SGOT) 56 U/L (5-34); Albumin 3.7 g/dL (3.4-4.8); Alkaline Phosphatase 106 U/L (40-110); Anion Gap 14 mmol/L (10-20); BUN (Urea Nitrogen) 18 mg/dL (8.4-25.7); Bilirubin, Total 1.1 mg/dL (0.2-1.2); Calc. Creatinine Clearance 0 mL/min (70-130); Calcium 9.4 mg/dL (7.8-10.44); Carbon Dioxide 22 mmol/L (23-31); Chloride 101 mmol/L (98-107); Estimated GFR 47; Globulin 3.6 g/dL (2.4-3.5); Glucose 84 mg/dL (83-110); Protein, Total 7.3 g/dL (5.8-8.1); Sodium 132 mmol/L (136-145)
[2023-08-19 23:20] LABS: Bacteria/HPF 4+ HPF (None Seen); Bilirubin Negative (Negative); Blood, Urine Negative (Negative); CAUTI Indications for Culture Alt mental st,lethar; Clarity Turbid (Clear); Glucose, Urine (Dipstick) Normal (Negative); Ketone, Urine Negative (Negative); Leukocyte 500 Leu/uL (Negative); Nitrite Negative (Negative); Protein, Urine (Dipstick) Negative (Neg-Trace); RBC/HPF 0-3 HPF (0-3); Specific Gravity, Urine 1.013 (1.002-1.036); Squamous Epithelial 0-3 HPF (0-3); Urobilinogen Normal mg/dL (Less than 2); WBC/HPF Greater than 50 HPF (0-3)
[2023-08-19 23:22] LABS: Urine Culture Reflex Yes Yes
[2023-08-20] MEDS ORDERED: cefTRIAXone (ROCEPHIN) 1 GM VIAL ONE (00:27)
[2023-08-20] MEDS ORDERED: Sodium Chloride 0.9% 1,000 ML IV SCH (01:45)
[2023-08-20] MEDS ORDERED: Ondansetron ODT 4 MG TAB PO PRN (02:02)
[2023-08-20 02:03] VITALS: BMI 31.5
[2023-08-20] MEDS ORDERED: Furosemide 40 MG TAB PO PRN (02:14)
[2023-08-20] MEDS ORDERED: Electrolyte Replacement Protocol 1 EACH FS SCH (02:15)
[2023-08-20] MEDS: Thiamine HCl 200 MG/2 ML VIAL SLOW IVP SCH (02:17)
[2023-08-20 02:52] LABS: Amphetamine Not Detected (NotDetected); Barbiturates Screen Not Detected (NotDetected); Benzodiazepine Screen Not Detected (NotDetected); Cocaine Metabolite Screen Not Detected (NotDetected); Methadone Not Detected (NotDetected); Methamphetamine Not Detected (NotDetected); Opiate Screen Detected (NotDetected); Oxycodone Screen Not Detected (NotDetected); Phencyclidine (PCP) Not Detected (NotDetected); THC/Cannabinoid Screen Not Detected (NotDetected); Tricyclic Screen Not Detected (NotDetected)
[2023-08-20] MEDS: Levothyroxine Sodium 125 MCG TAB PO SCH (05:42)
[2023-08-20 06:43] LABS: #Basophils 0.1 thou/uL (0.0-0.2); #Eosinphils 0.2 thou/uL (0.0-0.7); #Monocytes 1.1 thou/uL (0.11-0.59); %Basophils 0.7 % (0.0-1.0); %Eosinophils 2.4 % (0.0-10.0); %Lymphocytes 15.1 % (21.0-51.0); %Monocytes 14.3 % (0.0-10.0); %Neutrophils 66.7 % (42.0-75.0); Hematocrit 31.9 % (42.0-52.0); Hemoglobin 10.1 g/dL (14.0-18.0); Mean Corpuscular HGB CONC 31.7 g/dL (32.0-36.0); Mean Corpuscular Hemoglobin 31.9 pg (27.0-31.0); Mean Corpuscular Volume 100.6 fl (78.0-98.0); Mean Platelet Volume 11.2 fL (7.4-10.4); Platelet Count 266 10x3/uL (130-400); RBC Distribution Width 18.1 % (11.5-14.5); Red Blood Cell (RBC) Count 3.17 mill/uL (4.70-6.10); White Blood Cell (WBC) Count 7.5 10x3/uL (4.8-10.8)
[2023-08-20 07:13] LABS: Alcohol Less than 10.0 mg/dL (Less than 10); Anion Gap 16 mmol/L (10-20); BUN (Urea Nitrogen) 18 mg/dL (8.4-25.7); Calc. Creatinine Clearance 71 mL/min (70-130); Calcium 9.2 mg/dL (7.8-10.44); Carbon Dioxide 21 mmol/L (23-31); Chloride 104 mmol/L (98-107); Estimated GFR 57; Glucose 92 mg/dL (83-110); Iron Binding Capacity, Total 360 mcg/dL (261-462); Potassium 4.1 mmol/L (3.5-5.1); Sodium 137 mmol/L (136-145)
[2023-08-20 07:14] LABS: Iron 28 ug/dL (65-175)
[2023-08-20 07:35] LABS: Ferritin 101.29 ng/mL (22-322); Magnesium 1.7 mg/dL (1.6-2.6); Phosphorus 2.8 mg/dL (2.3-4.7)
[2023-08-20] MEDS ORDERED: Magnesium 2 GM/50 ML(in water) 2 GM in Premix Bag 1 BAG IVPB SCH (08:00)
[2023-08-20] MEDS: Sacubitril 24MG/Valsartan 26 MG TAB PO SCH ×2 (08:49→20:28)
[2023-08-20] MEDS: Clopidogrel Bisulfate 75 MG TAB PO SCH (08:49)
[2023-08-20] MEDS: Bupropion 150 MG SR.TAB PO SCH (08:49)
[2023-08-20] MEDS: Furosemide 40 MG TAB PO SCH (08:49)
[2023-08-20] MEDS: Folic Acid 1 MG TAB PO SCH (08:49)
[2023-08-20] MEDS: Multivit, Therapeutic 1 TAB PO SCH (08:49)
[2023-08-20] MEDS: Aspirin 81 mg Enteric Coated Tablet PO SCH (08:49)
[2023-08-20] MEDS ORDERED: Folic Acid 1 MG TAB PO SCH (09:00)
[2023-08-20] MEDS ORDERED: Famotidine 20 MG TAB PO SCH (09:00)
[2023-08-20] MEDS: Lorazepam 1 MG TAB PO PRN ×2 (11:42→16:22)
[2023-08-20] MEDS: Acetaminophen 325 MG TAB PO PRN (16:21)
[2023-08-20] MEDS: Lorazepam 2 MG/ML VIAL SLOW IVP PRN (20:28)
[2023-08-20] MEDS ORDERED: Sterile Water 10 ML VIAL FS PRN (21:00)
[2023-08-20] MEDS ORDERED: Ziprasidone 20 MG VIAL IM SCH (21:00)
[2023-08-21] MEDS: cefTRIAXone\\ROCEPHIN 1 GM in Sodium Chloride 0.9% 100 ML IVPB SCH (00:29)
[2023-08-21] MEDS ORDERED: Lorazepam 1 MG TAB PO PRN (02:02)
[2023-08-21] MEDS: Thiamine HCl 200 MG/2 ML VIAL SLOW IVP SCH (02:33)
[2023-08-21] MEDS: Lorazepam 2 MG/ML VIAL SLOW IVP PRN (03:57)
[2023-08-21] MEDS: Levothyroxine Sodium 125 MCG TAB PO SCH (05:02)
[2023-08-21 06:47] LABS: #Eosinphils 0.1 thou/uL (0.0-0.7); %Basophils 0.5 % (0.0-1.0); %Eosinophils 1.6 % (0.0-10.0); %Lymphocytes 15.4 % (21.0-51.0); %Monocytes 13.5 % (0.0-10.0); %Neutrophils 68.7 % (42.0-75.0); Hematocrit 26.7 % (42.0-52.0); Hemoglobin 8.5 g/dL (14.0-18.0); Mean Corpuscular HGB CONC 31.8 g/dL (32.0-36.0); Mean Corpuscular Hemoglobin 31.8 pg (27.0-31.0); Platelet Count 287 10x3/uL (130-400); Red Blood Cell (RBC) Count 2.67 mill/uL (4.70-6.10); White Blood Cell (WBC) Count 7.3 10x3/uL (4.8-10.8)
[2023-08-21 07:08] LABS: Anion Gap 14 mmol/L (10-20); BUN (Urea Nitrogen) 15 mg/dL (8.4-25.7); Calc. Creatinine Clearance 82 mL/min (70-130); Carbon Dioxide 23 mmol/L (23-31); Chloride 107 mmol/L (98-107); Estimated GFR 68; Glucose 72 mg/dL (83-110); Potassium 4.2 mmol/L (3.5-5.1); Sodium 140 mmol/L (136-145)
[2023-08-21] MEDS: Clopidogrel Bisulfate 75 MG TAB PO SCH (08:54)
[2023-08-21] MEDS: Furosemide 40 MG TAB PO SCH (08:54)
[2023-08-21] MEDS: Aspirin 81 mg Enteric Coated Tablet PO SCH (08:54)
[2023-08-21] MEDS: Multivit, Therapeutic 1 TAB PO SCH (08:54)
[2023-08-21] MEDS: Folic Acid 1 MG TAB PO SCH (08:54)
[2023-08-21] MEDS: Bupropion 150 MG SR.TAB PO SCH (08:54)
[2023-08-21] MEDS: Sacubitril 24MG/Valsartan 26 MG TAB PO SCH ×2 (08:54→20:17)
[2023-08-21] MEDS: traMADol HCl 50 MG TAB PO PRN (21:40)
[2023-08-21] MEDS ORDERED: Lorazepam 0.5 MG TAB PO PRN (22:00)
[2023-08-22] MEDS: cefTRIAXone\\ROCEPHIN 1 GM in Sodium Chloride 0.9% 100 ML IVPB SCH (00:05)
[2023-08-22] MEDS ORDERED: Lorazepam 1 MG TAB PO PRN (02:02)
[2023-08-22] MEDS: Thiamine HCl 200 MG/2 ML VIAL SLOW IVP SCH (02:15)
[2023-08-22] MEDS: Levothyroxine Sodium 125 MCG TAB PO SCH (05:49)
[2023-08-22] MEDS: Clopidogrel Bisulfate 75 MG TAB PO SCH (11:13)
[2023-08-22] MEDS: Furosemide 40 MG TAB PO SCH (11:13)
[2023-08-22] MEDS: Bupropion 150 MG SR.TAB PO SCH (11:13)
[2023-08-22] MEDS: Multivit, Therapeutic 1 TAB PO SCH (11:13)
[2023-08-22] MEDS: Folic Acid 1 MG TAB PO SCH (11:13)
[2023-08-22] MEDS: Sacubitril 24MG/Valsartan 26 MG TAB PO SCH ×2 (11:13→21:44)
[2023-08-22] MEDS: Aspirin 81 mg Enteric Coated Tablet PO SCH (11:14)
[2023-08-22] MEDS: traMADol HCl 50 MG TAB PO PRN (11:19)
[2023-08-22] MEDS: Lorazepam 2 MG/ML VIAL SLOW IVP PRN (14:38)
[2023-08-22] MEDS: Acetaminophen 325 MG TAB PO PRN (23:32)
[2023-08-23] MEDS: cefTRIAXone\\ROCEPHIN 1 GM in Sodium Chloride 0.9% 100 ML IVPB SCH (01:52)
[2023-08-23] MEDS ORDERED: Lorazepam 0.5 MG TAB PO PRN (02:02)
[2023-08-23] MEDS: Levothyroxine Sodium 125 MCG TAB PO SCH (05:12)
[2023-08-23] MEDS: Aspirin 81 mg Enteric Coated Tablet PO SCH (08:46)
[2023-08-23] MEDS: Folic Acid 1 MG TAB PO SCH (08:46)
[2023-08-23] MEDS: Bupropion 150 MG SR.TAB PO SCH (08:46)
[2023-08-23] MEDS: Thiamine 100 MG TAB PO SCH (08:46)
[2023-08-23] MEDS: Multivit, Therapeutic 1 TAB PO SCH (08:46)
[2023-08-23] MEDS: Sacubitril 24MG/Valsartan 26 MG TAB PO SCH ×2 (08:46→20:26)
[2023-08-23] MEDS: Clopidogrel Bisulfate 75 MG TAB PO SCH (08:46)
[2023-08-23] MEDS: Furosemide 40 MG TAB PO SCH (08:46)
[2023-08-23] MEDS: Acetaminophen 325 MG TAB PO PRN (13:44)
[2023-08-23] MEDS: traMADol HCl 50 MG TAB PO PRN (20:35)
[2023-08-24] MEDS: Levothyroxine Sodium 125 MCG TAB PO SCH (05:04)
[2023-08-24] MEDS: traMADol HCl 50 MG TAB PO PRN ×2 (05:06→17:15)
[2023-08-24] MEDS: Furosemide 40 MG TAB PO SCH (08:16)
[2023-08-24] MEDS: Bupropion 150 MG SR.TAB PO SCH (08:16)
[2023-08-24] MEDS: Multivit, Therapeutic 1 TAB PO SCH (08:16)
[2023-08-24] MEDS: Clopidogrel Bisulfate 75 MG TAB PO SCH (08:16)
[2023-08-24] MEDS: Sacubitril 24MG/Valsartan 26 MG TAB PO SCH ×2 (08:16→20:56)
[2023-08-24] MEDS: Folic Acid 1 MG TAB PO SCH (08:16)
[2023-08-24] MEDS: Aspirin 81 mg Enteric Coated Tablet PO SCH (08:16)
[2023-08-24] MEDS: Thiamine 100 MG TAB PO SCH (08:17)
[2023-08-24] MEDS: LevoFLOXacin 500 MG TAB PO SCH (20:56)
[2023-08-24] MEDS: Acetaminophen 325 MG TAB PO PRN (20:57)
[2023-08-25] MEDS: Levothyroxine Sodium 125 MCG TAB PO SCH (05:23)
[2023-08-25] MEDS: traMADol HCl 50 MG TAB PO PRN ×2 (05:23→21:22)
[2023-08-25 06:20] LABS: #Eosinphils 0.3 thou/uL (0.0-0.7); #Monocytes 0.6 thou/uL (0.11-0.59); #Neutrophils 5.1 thou/uL (1.40-6.50); %Basophils 0.4 % (0.0-1.0); %Eosinophils 3.5 % (0.0-10.0); %Lymphocytes 14.7 % (21.0-51.0); %Monocytes 8.4 % (0.0-10.0); %Neutrophils 72.4 % (42.0-75.0); Hematocrit 27.3 % (42.0-52.0); Hemoglobin 8.8 g/dL (14.0-18.0); Mean Corpuscular HGB CONC 32.2 g/dL (32.0-36.0); Mean Corpuscular Hemoglobin 31.1 pg (27.0-31.0); Mean Corpuscular Volume 96.5 fl (78.0-98.0); Mean Platelet Volume 10.7 fL (7.4-10.4); Platelet Count 314 10x3/uL (130-400); RBC Distribution Width 17.1 % (11.5-14.5); Red Blood Cell (RBC) Count 2.83 mill/uL (4.70-6.10); White Blood Cell (WBC) Count 7.1 10x3/uL (4.8-10.8)
[2023-08-25 06:40] LABS: Anion Gap 12 mmol/L (10-20); BUN (Urea Nitrogen) 12 mg/dL (8.4-25.7); Calc. Creatinine Clearance 90 mL/min (70-130); Calcium 8.8 mg/dL (7.8-10.44); Carbon Dioxide 27 mmol/L (23-31); Chloride 100 mmol/L (98-107); Estimated GFR 75; Glucose 95 mg/dL (83-110); Potassium 3.2 mmol/L (3.5-5.1); Sodium 136 mmol/L (136-145)
[2023-08-25] MEDS ORDERED: Potassium Chloride 20 MEQ TAB PO SCH (08:00)
[2023-08-25] MEDS: Furosemide 40 MG TAB PO SCH (09:09)
[2023-08-25] MEDS: Clopidogrel Bisulfate 75 MG TAB PO SCH (09:10)
[2023-08-25] MEDS: Bupropion 150 MG SR.TAB PO SCH (09:10)
[2023-08-25] MEDS: Aspirin 81 mg Enteric Coated Tablet PO SCH (09:10)
[2023-08-25] MEDS: Thiamine 100 MG TAB PO SCH (09:11)
[2023-08-25] MEDS: Sacubitril 24MG/Valsartan 26 MG TAB PO SCH ×2 (09:11→21:13)
[2023-08-25] MEDS: Folic Acid 1 MG TAB PO SCH (09:11)
[2023-08-25] MEDS: Multivit, Therapeutic 1 TAB PO SCH (09:11)
[2023-08-25] MEDS: LevoFLOXacin 500 MG TAB PO SCH (21:13)
[2023-08-26] MEDS: Levothyroxine Sodium 125 MCG TAB PO SCH (05:33)
[2023-08-26 05:52] LABS: #Eosinphils 0.3 thou/uL (0.0-0.7); #Monocytes 0.6 thou/uL (0.11-0.59); #Neutrophils 5.3 thou/uL (1.40-6.50); %Basophils 0.5 % (0.0-1.0); %Eosinophils 3.6 % (0.0-10.0); %Lymphocytes 14.4 % (21.0-51.0); %Monocytes 8.4 % (0.0-10.0); %Neutrophils 72.6 % (42.0-75.0); Hematocrit 28.1 % (42.0-52.0); Hemoglobin 8.9 g/dL (14.0-18.0); Mean Corpuscular HGB CONC 31.7 g/dL (32.0-36.0); Mean Corpuscular Volume 97.9 fl (78.0-98.0); Mean Platelet Volume 10.8 fL (7.4-10.4); Platelet Count 321 10x3/uL (130-400); RBC Distribution Width 17.4 % (11.5-14.5); Red Blood Cell (RBC) Count 2.87 mill/uL (4.70-6.10); White Blood Cell (WBC) Count 7.3 10x3/uL (4.8-10.8)
[2023-08-26 06:19] LABS: Anion Gap 10 mmol/L (10-20); BUN (Urea Nitrogen) 12 mg/dL (8.4-25.7); Calc. Creatinine Clearance 81 mL/min (70-130); Calcium 9.1 mg/dL (7.8-10.44); Carbon Dioxide 28 mmol/L (23-31); Chloride 102 mmol/L (98-107); Estimated GFR 66; Glucose 86 mg/dL (83-110); Potassium 3.4 mmol/L (3.5-5.1); Sodium 137 mmol/L (136-145)
[2023-08-26 07:27] VITALS: BP 113/75; TEMP 97.7
[2023-08-26] MEDS: Sacubitril 24MG/Valsartan 26 MG TAB PO SCH (07:53)
[2023-08-26] MEDS: Folic Acid 1 MG TAB PO SCH (07:53)
[2023-08-26] MEDS: Aspirin 81 mg Enteric Coated Tablet PO SCH (07:53)
[2023-08-26] MEDS: Multivit, Therapeutic 1 TAB PO SCH (07:53)
[2023-08-26] MEDS: Bupropion 150 MG SR.TAB PO SCH (07:53)
[2023-08-26] MEDS: Clopidogrel Bisulfate 75 MG TAB PO SCH (07:53)
[2023-08-26] MEDS: Thiamine 100 MG TAB PO SCH (07:54)
[2023-08-26] MEDS: Furosemide 40 MG TAB PO SCH (07:54)
[2023-08-26] MEDS ORDERED: Potassium Chloride 20 MEQ TAB PO SCH (08:00)
== END 2023-08-26 15:29 | disposition swing bed (61) | DRG 689 ==
LOC: ERS 21:30 → T4-B 08-20 00:29 → T4-A 08-20 11:45
PROVIDERS: ADMIT Student in an Organized Health Care Education/Training Program; ATTEND Internal Medicine
DX: N39.0 Urinary tract infection, site not specified (principal); G93.41 Metabolic encephalopathy; E87.1 Hypo-osmolality and hyponatremia; I42.9 Cardiomyopathy, unspecified; I50.22 Chronic systolic (congestive) heart failure; N17.9 Acute kidney failure, unspecified; I13.0 Hypertensive heart and chronic kidney disease with heart failure and stage 1 through stage 4 chronic kidney disease, or unspecified chronic kidney disease; F02.84 Dementia in other diseases classified elsewhere, unspecified severity, with anxiety; E03.9 Hypothyroidism, unspecified; Z66 Do not resuscitate; I48.91 Unspecified atrial fibrillation; K21.9 Gastro-esophageal reflux disease without esophagitis; I25.10 Atherosclerotic heart disease of native coronary artery without angina pectoris; E78.5 Hyperlipidemia, unspecified; F41.9 Anxiety disorder, unspecified; F32.A Depression, unspecified; K74.60 Unspecified cirrhosis of liver; G47.30 Sleep apnea, unspecified; Z96.652 Presence of left artificial knee joint; S42.101A Fracture of unspecified part of scapula, right shoulder, initial encounter for closed fracture; G30.9 Alzheimer's disease, unspecified; N18.2 Chronic kidney disease, stage 2 (mild); R53.81 Other malaise; E87.6 Hypokalemia; Z98.890 Other specified postprocedural states; Z79.82 Long term (current) use of aspirin; Z79.899 Other long term (current) drug therapy; Z95.0 Presence of cardiac pacemaker; Z90.49 Acquired absence of other specified parts of digestive tract
CPT/HCPCS: 36415; 36416; 70450; 71045; 72125; 80048; 80306; 80307; 81001; 82607; 82728; 83540; 83550; 83735; 83880; 84100; 84443; 84484; 85025; 87040; 87086; 93005; 96365; J0696; J2060; J3411; J3475; J3490; J7050

== ENCOUNTER 2024-05-22 11:34 | Emergency (ER) | payer MEDICARE, BC, OTHER ==
[2024-05-22 13:01] LABS: #Basophils 0.03 10x3/uL (0.0-0.2); %Basophils 0.6 % (0.0-1.0); %Eosinophils 0.9 % (0.0-10.0); %Lymphocytes 29.2 % (21.0-51.0); %Monocytes 9.6 % (0.0-10.0); %Neutrophils 59.3 % (42.0-75.0); Hematocrit 32.3 % (42.0-52.0); Hemoglobin 10.5 g/dL (14.0-18.0); Mean Corpuscular HGB CONC 32.5 g/dL (32.0-36.0); Mean Corpuscular Hemoglobin 25.6 pg (27.0-31.0); Mean Corpuscular Volume 78.8 fL (78.0-98.0); Mean Platelet Volume 11.5 fL (7.4-10.4); Platelet Count 206 10x3/uL (130-400); RBC Distribution Width 18.4 % (11.5-14.5)
[2024-05-22] MEDS ORDERED: Ketorolac Tromethamine 30 MG (1 mL) VIAL ONE (13:26)
[2024-05-22 13:27] LABS: Alcohol 253.4 mg/dL (Less than 10)
[2024-05-22 13:30] LABS: ALT (SGPT) 15 U/L (8-55); AST (SGOT) 25 U/L (5-34); Albumin 3.8 g/dL (3.4-4.8); Alkaline Phosphatase 68 U/L (40-110); Anion Gap 15 mmol/L (10-20); BUN (Urea Nitrogen) 12 mg/dL (8.4-25.7); Bilirubin, Total 0.6 mg/dL (0.2-1.2); Calc. Creatinine Clearance 0 mL/min (70-130); Calcium 9.2 mg/dL (7.8-10.44); Carbon Dioxide 24 mmol/L (23-31); Chloride 100 mmol/L (98-107); Estimated GFR 75; Globulin 3.3 g/dL (2.4-3.5); Glucose 75 mg/dL (83-110); Potassium 3.3 mmol/L (3.5-5.1); Protein, Total 7.1 g/dL (5.8-8.1); Sodium 136 mmol/L (136-145)
[2024-05-22] MEDS ORDERED: Potassium Chloride 20 MEQ TAB ONE (17:41)
== END 2024-05-22 19:21 ==
LOC: ERS 11:34
DX: S22.41XA Multiple fractures of ribs, right side, initial encounter for closed fracture (principal); F10.229 Alcohol dependence with intoxication, unspecified; I11.0 Hypertensive heart disease with heart failure; I50.9 Heart failure, unspecified; W19.XXXA Unspecified fall, initial encounter
CPT/HCPCS: 70450; 71101; 72125; 80053; 80307; 85025; 93005; 96372; 99285; J1885; 36415